=== PATIENT | male | born 1965 | race African-American/Black ===

== ENCOUNTER 2018-05-18 13:52 | Emergency (ER) | payer OTHER ==
[2018-05-18 14:47] LABS: ADD MAN DIFF? NO
[2018-05-18 14:49] LABS: BASO # 0.1 x10^3/uL (0.0-0.2); BASO % 1 % (0-3); EOS # 0.1 x10^3/uL (0.0-0.7); EOS % 2 % (0-3); HEMATOCRIT 39.7 % (39.0-53.0); HEMOGLOBIN 13.2 g/dL (13.0-17.5); LYMPH % 47 % (24-48); MEAN CORPUSCULAR HEMOGLOBIN 29 pg (25-35); MEAN CORPUSCULAR HGB CONC 33 g/dL (31-37); MEAN CORPUSCULAR VOLUME 86 fL (79-100); MONO # 0.7 x10^3/uL (0.0-1.1); MONO % 10 % (0-9); NEUT # 2.5 x10^3uL (1.8-7.7); NEUT % 40 % (31-73); PLATELET COUNT 181 x10^3/uL (140-400); RED BLOOD COUNT 4.64 x10^6/uL (4.30-5.70); RED CELL DISTRIBUTION WIDTH 15.3 % (11.5-14.5); WHITE BLOOD COUNT 6.4 x10^3/uL (4.0-11.0)
[2018-05-18] MEDS: IV NORMAL SALINE 1000ML BAG 1,000 ML IV ×2 (14:56→16:54)
[2018-05-18 14:57] LABS: ANION GAP 7 (6-14); BLOOD UREA NITROGEN 15 mg/dL (8-26); CALCIUM 8.9 mg/dL (8.5-10.1); CARBON DIOXIDE 27 mmol/L (21-32); CHLORIDE 109 mmol/L (98-107); CREATININE 1.9 mg/dL (0.7-1.3); GFR 45.1; GLUCOSE 107 mg/dL (70-99); POTASSIUM 3.9 mmol/L (3.5-5.1); SODIUM 143 mmol/L (136-145)
[2018-05-18 15:06] LABS: TROPONINI < 0.017 ng/mL (0.000-0.055)
[2018-05-18 16:44] LABS: BILIRUBIN,URINE NEGATIVE (NEG); CLARITY,URINE CLEAR; COLOR,URINE YELLOW; GLUCOSE,URINE NEGATIVE (NEG); NITRITE,URINE NEGATIVE (NEG); PROTEIN,URINE NEGATIVE (NEG-TRACE)
[2018-05-18 16:50] LABS: AMPHETAMINE/METHAMPHETAMINE NEG (NEG); BARBITURATES NEG (NEG); BENZODIAZEPINES NEG (NEG); CANNABINOIDS NEG (NEG); COCAINE POS (NEG); ETHANOL, URINE NEG (NEG); METHADONE NEG (NEG); OPIATES NEG (NEG); PHENCYCLIDINE NEG (NEG)
[2018-05-18 16:56] LABS: BACTERIA,URINE 0 /HPF (0-FEW); SQUAMOUS EPITHELIAL CELL,UR FEW /LPF; WBC,URINE OCC /HPF (0-4)
== END 2018-05-18 18:22 | disposition home or self-care (01) ==
LOC: ER 13:52
DX: R42 Dizziness and giddiness (principal); G89.29 Other chronic pain
CPT/HCPCS: 36415; 80048; 80307; 81001; 84484; 85025; 93005; 96360; 96361; 96365; 99285-25; J7030

== ENCOUNTER 2018-12-25 14:15 | Inpatient (IN) | payer MEDICARE, OTHER ==
[~2018-12-25] VITALS: Ht 180.3 cm; Wt 100.9 kg
[~2018-12-25 14:15] MED LIST: ACET5SOL PO; ALBU8.5H6 IH; AMOX500T PO
[2018-12-25] MEDS ORDERED: IV NORMAL SALINE 1000ML BAG 1,000 ML IV SCH (14:24)
[2018-12-25] MEDS ORDERED: IV NORMAL SALINE 1000ML BAG 1,000 ML IV ONE (14:30)
[2018-12-25 14:40] LABS: BASO # 0.1 x10^3/uL (0.0-0.2); BASO % 1 % (0-3); EOS # 0.1 x10^3/uL (0.0-0.7); EOS % 1 % (0-3); HEMATOCRIT 43.5 % (39.0-53.0); HEMOGLOBIN 14.6 g/dL (13.0-17.5); LYMPH # 1.6 x10^3/uL (1.0-4.8); LYMPH % 23 % (24-48); MEAN CORPUSCULAR HEMOGLOBIN 29 pg (25-35); MEAN CORPUSCULAR HGB CONC 34 g/dL (31-37); MEAN CORPUSCULAR VOLUME 85 fL (79-100); MONO # 0.8 x10^3/uL (0.0-1.1); MONO % 12 % (0-9); NEUT # 4.4 x10^3uL (1.8-7.7); NEUT % 64 % (31-73); PLATELET COUNT 194 x10^3/uL (140-400); RED BLOOD COUNT 5.11 x10^6/uL (4.30-5.70); WHITE BLOOD COUNT 6.9 x10^3/uL (4.0-11.0)
[2018-12-25 14:42] LABS: BASE EXCESS ABG 0 mmol/L (-3-3); HCO3 ABG 22 mmol/L (21-28); PCO2 ABG 29 mmHg (35-46); PO2 ABG 101 mmHg (75-108); SAT O2 ABG 97 % (92-99)
--- NOTE | 2018-12-25 14:43 | PHYS DOC ---
Past Medical History Past Medical History: Hypertension, Other Additional Past Medical Histor: CHRONIC BACK PAIN Past Surgical History: No Surgical History Smoking: Cigarettes Alcohol Use: Rarely Drug Use: Cocaine Adult General Chief Complaint Chief Complaint: SHORTNESS OF BREATH HPI HPI Patient is a 53-year-old -[place] male who presents to the emergency department for evaluation. He states he awakened this morning and was acutely short of breath, and then came to the ER and reportedly had a syncopal episode and collapsed in the waiting room. He was rushed back to an ER treatment area. He denies any pain, but is tachypnea/hyperventilating upon initial assessment. He has not had any chest pain, headache, numbness, or focal weakness. He does admit to recent cocaine use. There are no alleviating or exacerbating factors to his symptoms otherwise. Review of Systems Review of Systems Constitutional: Denies fever or chills [] Eyes: Denies change in visual acuity, redness, or eye pain [] HENT: Denies nasal congestion or sore throat [] Respiratory: Reports nonproductive cough and shortness of breath.] Cardiovascular: No additional information not addressed in HPI [] GI: Denies abdominal pain, nausea, vomiting, bloody stools or diarrhea [] : Denies dysuria or hematuria [] Musculoskeletal: Denies back pain or joint pain [] Integument: Denies rash or skin lesions [] Neurologic: Denies headache, focal weakness or sensory changes [] Endocrine: Denies polyuria or polydipsia [] All other systems were reviewed and found to be within normal limits, except as documented in this note. Current Medications Current Medications Current Medications Medications (Trade) Dose Ordered Sig/Tita Start Time Stop Time Status Last Admin Dose Admin Lorazepam (Ativan) 1 mg 1X ONCE 12/25/18 15:30 12/25/18 15:33 DC 12/25/18 15:40 1 MG Sodium Chloride 1,000 ml @ 1,000 mls/hr Q1H 12/25/18 14:24 12/25/18 15:23 DC 12/25/18 15:35 1,000 MLS/HR Allergies Allergies Allergies Coded Allergies Type Severity Reaction Last Updated Verified No Known Drug Allergies 01/13/14 No Physical Exam Physical Exam PHYSICAL EXAM: CONSTITUTIONAL: Well developed, well nourished HEAD: normocephalic, atraumatic EENT: PERRL, EOMI. Conjunctivae normal color, sclerae non-icteric; moist mucous membranes. NECK: Supple, non-tender; no meningismus. LUNGS: Lungs CTA, the patient is hyperventilating. HEART: Regular rate and rhythm, no murmur CHEST: No deformity; non-tender ABDOMEN: The abdomen is soft, and non-tender, no masses or bruits. EXTREM: Normal ROM; no deformity, no calf tenderness. Normal pulses palpable in all extremities. There is no pedal edema. SKIN: No rash; no diaphoresis NEURO: Patient is lethargic but awake, oriented, and answering questions normally, normal speech and cognition; CN's grossly intact; strength grossly intact without focal deficit. BACK: No CVA TTP. Current Patient Data Vital Signs Vital Signs Date Time Temp Pulse Resp B/P (MAP) Pulse Ox O2 Delivery O2 Flow Rate FiO2 12/25/18 14:15 100.4 103 38 171/97 (121) 100 Nasal Cannula 2.0 100.4 Lab Values Laboratory Tests Test 12/25/18 14:18 12/25/18 14:28 12/25/18 14:40 White Blood Count 6.9 x10^3/uL (4.0-11.0) Red Blood Count 5.11 x10^6/uL (4.30-5.70) Hemoglobin 14.6 g/dL (13.0-17.5) Hematocrit 43.5 % (39.0-53.0) Mean Corpuscular Volume 85 fL (79-100) Mean Corpuscular Hemoglobin 29 pg (25-35) Mean Corpuscular Hemoglobin Concent 34 g/dL (31-37) Red Cell Distribution Width 15.0 % (11.5-14.5) H Platelet Count 194 x10^3/uL (140-400) Neutrophils (%) (Auto) 64 % (31-73) Lymphocytes (%) (Auto) 23 % (24-48) L Monocytes (%) (Auto) 12 % (0-9) H Eosinophils (%) (Auto) 1 % (0-3) Basophils (%) (Auto) 1 % (0-3) Neutrophils # (Auto) 4.4 x10^3uL (1.8-7.7) Lymphocytes # (Auto) 1.6 x10^3/uL (1.0-4.8) Monocytes # (Auto) 0.8 x10^3/uL (0.0-1.1) Eosinophils # (Auto) 0.1 x10^3/uL (0.0-0.7) Basophils # (Auto) 0.1 x10^3/uL (0.0-0.2) Prothrombin Time 13.2 SEC (11.7-14.0) Prothrombin Time INR 1.0 (0.8-1.1) D-Dimer (Tess) < 0.27 ug/mlFEU Sodium Level 143 mmol/L (136-145) Potassium Level 3.9 mmol/L (3.5-5.1) Chloride Level 105 mmol/L (98-107) Carbon Dioxide Level 26 mmol/L (21-32) Anion Gap 12 (6-14) Blood Urea Nitrogen 14 mg/dL (8-26) Creatinine 1.5 mg/dL (0.7-1.3) H Estimated GFR (Cockcroft-Gault) 59.0 BUN/Creatinine Ratio 9 (6-20) Glucose Level 102 mg/dL (70-99) H Lactic Acid Level 2.2 mmol/L (0.4-2.0) H Calcium Level 9.2 mg/dL (8.5-10.1) Magnesium Level 2.2 mg/dL (1.8-2.4) Total Bilirubin 0.5 mg/dL (0.2-1.0) Aspartate Amino Transferase (AST) 20 U/L (15-37) Alanine Aminotransferase (ALT) 26 U/L (16-63) Alkaline Phosphatase 71 U/L (46-116) Creatine Kinase 255 U/L (39-308) Creatine Kinase MB (Mass) 2.1 ng/mL (0.0-3.6) Creatine Kinase MB Relative Index 0.8 % (0-4) Troponin I Quantitative < 0.017 ng/mL (0.000-0.055) RP-Mve-O-Type Natriuretic Peptide 55 pg/mL (0-124) Total Protein 8.1 g/dL (6.4-8.2) Albumin 3.7 g/dL (3.4-5.0) Albumin/Globulin Ratio 0.8 (1.0-1.7) L Lipase 94 U/L (73-393) Ethyl Alcohol Level < 10 mg/dL (0-10) Influenza Type A Antigen Negative (NEGATIVE) Influenza Type B Antigen Negative (NEGATIVE) O2 Saturation 97 % (92-99) Arterial Blood pH 7.49 (7.35-7.45) H Arterial Blood pCO2 at Patient Temp 29 mmHg (35-46) L Arterial Blood pO2 at Patient Temp 101 mmHg (75-108) Arterial Blood HCO3 22 mmol/L (21-28) Arterial Blood Base Excess 0 mmol/L (-3-3) FiO2 32 Laboratory Tests 12/25/18 14:18 Laboratory Tests 12/25/18 14:18 EKG EKG [Normal sinus rhythm at a rate of 91 bpm, normal axis, normal intervals. There is lateral T wave inversion without acute ischemic ST/T changes.] EKG is not changed compared to patient's prior EKG. Radiology/Procedures Radiology/Procedures [PROCEDURE: PORTABLE CHEST 1V EXAM: Chest, single view. HISTORY: Syncope. Shortness of breath. COMPARISON: None. FINDINGS: A frontal view of the chest is obtained. There is mild central interstitial prominence without los congestion or focal infiltrate. There is no consolidation. There is no pleural effusion or pneumothorax. The heart is normal in size. IMPRESSION: No acute pulmonary finding.] Course & Med Decision Making Course & Med Decision Making Pertinent Labs and Imaging studies reviewed. (See chart for details) [4:15 PM: The patient's condition remained stable. I discussed the case with Dr. Vazquez, his PCP, who will admit him to the hospital for further evaluation] Dragon Disclaimer Dragon Disclaimer This electronic medical record was generated, in whole or in part, using a voice recognition dictation system. Departure Departure Impression: Primary Impression: Dyspnea Additional Impressions: Syncope Altered mental status Cocaine abuse Disposition: ADMITTED INPATIENT Condition: STABLE Referrals: NO PCP (PCP) Problem Qualifiers SURI COTTO MD Dec 25, 2018 14:43
--- NOTE | 2018-12-25 14:49 | RAD ---
EXAM: Chest, single view. HISTORY: Syncope. Shortness of breath. COMPARISON: None. FINDINGS: A frontal view of the chest is obtained. There is mild central interstitial prominence without los congestion or focal infiltrate. There is no consolidation. There is no pleural effusion or pneumothorax. The heart is normal in size. IMPRESSION: No acute pulmonary finding. Electronically signed by: Charlee Freeman MD (12/25/2018 2:46 PM) [id number]
[2018-12-25 14:50] LABS: PROTHROMBIN TIME PATIENT 13.2 SEC (11.7-14.0)
[2018-12-25 14:54] LABS: D-DIMER < 0.27 ug/mlFEU (0.00-0.50)
[2018-12-25 14:56] LABS: CALCIUM 9.2 mg/dL (8.5-10.1); CREATININE 1.5 mg/dL (0.7-1.3); POTASSIUM 3.9 mmol/L (3.5-5.1)
[2018-12-25 15:05] LABS: INFLUENZA A PATIENT NEGATIVE (NEGATIVE); INFLUENZA B PATIENT NEGATIVE (NEGATIVE)
[2018-12-25 15:09] LABS: ALBUMIN 3.7 g/dL (3.4-5.0); ALBUMIN/GLOBULIN RATIO 0.8 (1.0-1.7); MAGNESIUM 2.2 mg/dL (1.8-2.4); TOTAL BILIRUBIN 0.5 mg/dL (0.2-1.0); TOTAL PROTEIN 8.1 g/dL (6.4-8.2)
--- NOTE | 2018-12-25 15:50 | EKG ---
[facility] [address] [place] [address] Test Date: 2018-12-25 Test Time: 14:24:52 Pat Name: KAROLINE MÉNDEZ Department: Room: Gender: M Regional Clinical Director: : 1965 Requested By: SURI COTTO Order Number: [id number] Reading MD: Chicho Rosado MD Measurements Intervals [place] Rate: 91 P: 50 NE: 158 QRS: 46 QRSD: 94 T: 101 QT: 330 QTc: 413 Interpretive Statements SINUS RHYTHM LVH Electronically Signed On 12-26-2018 16:10:57 CDT by Chicho Rosado MD
[2018-12-25 16:12] LABS: FIO2 ABG 32
[2018-12-25 16:22] LABS: BILIRUBIN,URINE NEGATIVE (NEG); CLARITY,URINE CLEAR; COLOR,URINE YELLOW; NITRITE,URINE NEGATIVE (NEG); PROTEIN,URINE NEGATIVE (NEG-TRACE)
[2018-12-25 16:45] LABS: BARBITURATES NEG (NEG); BENZODIAZEPINES NEG (NEG); CANNABINOIDS NEG (NEG); COCAINE POS (NEG); METHADONE NEG (NEG); OPIATES NEG (NEG); PHENCYCLIDINE NEG (NEG)
[2018-12-25 16:47] LABS: AMPHETAMINE/METHAMPHETAMINE NEG (NEG); BACTERIA,URINE 0 /HPF (0-FEW); RBC,URINE OCC /HPF (0-2); SQUAMOUS EPITHELIAL CELL,UR OCC /LPF; WBC,URINE 0 /HPF (0-4)
[2018-12-25 17:41] VITALS: BP 119/75
[2018-12-25] MEDS ORDERED: LITHIUM CARBONATE ER 300 MG TABLET.ER PO SCH (18:15)
[2018-12-25] MEDS: CYCLOBENZAPRINE 10 MG TABLET. PO PRN (18:44)
[2018-12-25] MEDS: chlordiazePOXIDE HCL 25 MG CAPSULE PO PRN (18:44)
[2018-12-25] MEDS: IBUPROFEN 200 MG TABLET. PO PRN (19:32)
[2018-12-25 19:58] VITALS: BP 150/93
[2018-12-25] MEDS: IPRATRPIUM/ALBUTEROL 0.5/2.5MG 3 ML NEBU. NEB SCH (20:07)
[2018-12-25 23:45] VITALS: BP 113/56
[2018-12-26] MEDS: CYCLOBENZAPRINE 10 MG TABLET. PO PRN (02:20)
[2018-12-26] MEDS: chlordiazePOXIDE HCL 25 MG CAPSULE PO PRN ×3 (02:20→21:13)
[2018-12-26 03:40] VITALS: BP 92/55
[2018-12-26] MEDS: IBUPROFEN 200 MG TABLET. PO PRN ×3 (03:52→19:51)
--- NOTE | 2018-12-26 03:55 | RAD ---
Indication:fever, increased heart rate, increased troponin TECHNIQUE:Portable AP chest X-ray COMPARISON: 12/25/2018 FINDINGS: Heart is normal in size. Bilateral interstitial opacities are seen. No focal consolidation. No pneumothorax or pleural effusion. Visualized bony thorax is within normal limits. IMPRESSION: Findings of atypical/viral infection or interstitial pulmonary edema. Electronically signed by: Nghia Escalante DO (12/26/2018 3:53 AM) [id number]
[2018-12-26] MEDS ORDERED: IV NORMAL SALINE 1000ML BAG 1,000 ML IV SCH ×2 (04:00→05:30)
--- NOTE | 2018-12-26 04:02 | NUR ---
Pt with elevated temp noted again during the noc. Pt also with nonproductive cough noted and elevated troponin. Notified vector control assistant Physician and received orders. Orders implemented and pt given motrin to help decrease temperature. Pt states complaints of chest pain due to his coughing. Pt also given flexeril and librium for his symptoms. IV fluids and antibiotics given after labs drawn. Will continue current plan of care.
[2018-12-26] MEDS: cefTRIAXone IV Push 1 GM VIAL. IVP SCH (04:12)
[2018-12-26 04:46] LABS: BASO # 0.1 x10^3/uL (0.0-0.2); BASO % 1 % (0-3); EOS % 0 % (0-3); HEMATOCRIT 37.8 % (39.0-53.0); HEMOGLOBIN 12.4 g/dL (13.0-17.5); LYMPH # 0.6 x10^3/uL (1.0-4.8); LYMPH % 12 % (24-48); MEAN CORPUSCULAR HEMOGLOBIN 28 pg (25-35); MEAN CORPUSCULAR HGB CONC 33 g/dL (31-37); MEAN CORPUSCULAR VOLUME 85 fL (79-100); MONO # 0.6 x10^3/uL (0.0-1.1); MONO % 12 % (0-9); NEUT # 3.9 x10^3uL (1.8-7.7); NEUT % 75 % (31-73); PLATELET COUNT 162 x10^3/uL (140-400); RED BLOOD COUNT 4.46 x10^6/uL (4.30-5.70); RED CELL DISTRIBUTION WIDTH 14.5 % (11.5-14.5); WHITE BLOOD COUNT 5.2 x10^3/uL (4.0-11.0)
[2018-12-26] MEDS ORDERED: FUROSEMIDE 20 MG/2 ML VIAL. IVP ONE (05:30)
[2018-12-26 06:50] VITALS: BP 113/65
[2018-12-26] MEDS: IPRATRPIUM/ALBUTEROL 0.5/2.5MG 3 ML NEBU. NEB SCH ×4 (08:02→21:07)
[2018-12-26] MEDS: LACTOBACILLUS RHAMNOSUS GG 1 CAPSULE. PO SCH ×2 (09:14→19:51)
--- NOTE | 2018-12-26 09:14 | NUR ---
SW following pt for anticipated dc needs. Chart reviewed and discussed with RN. Pt is from home and is positive for cocaine. KIRT phoned the PAT team for assessment and evaluation for substance use. Loulou from PAT team will come in to see pt in the afternoon. Will continue to follow.
[2018-12-26] MEDS ORDERED: AZITHROMYCIN 250 MG TABLET. PO ONE (09:15)
[2018-12-26] MEDS ORDERED: BENZONATATE 100 MG CAPSULE. PO SCH (09:30)
[2018-12-26] MEDS: BENZONATATE 100 MG CAPSULE. PO PRN (10:45)
[2018-12-26 11:01] VITALS: BP 116/63
--- NOTE | 2018-12-26 11:17 | HP ---
ADMIT DATE: 12/26/2018 CHIEF COMPLAINT: Shortness of breath. HISTORY OF PRESENT ILLNESS AND HOSPITAL COURSE: The patient is a 53-year-old male who comes in with increasing cough and shortness of breath. The patient had episode of syncope and collapsed in the ER waiting room. He was quickly revived and brought to the examination room, acting somewhat confused and having difficulty with history was discovered. The patient had been using cocaine 3 days prior and periodically uses alcohol, but has not had a drink for over 3 days. ER evaluation was mostly negative with negative troponins, white count and chest x-ray, but due to syncope and severity of symptoms, the patient was admitted for further evaluation. During early hospitalization, chest x-ray did show evidence of interstitial changes consistent with CHF versus viral syndrome. The patient also had a very mild elevation in troponin. Cardiology was consulted as well as Pulmonary. The patient was started on antibiotics and routine breathing treatments with cardiac echo pending. PAST MEDICAL HISTORY: Significant for diet-controlled hypertension, chronic back pains. PAST SURGICAL HISTORY: Significant for tonsil-adenoidectomy. FAMILY HISTORY: Significant for mother who is with cancer of unknown etiology. Father who is with cancer of unknown etiology. Also had COPD, hypertension and kidney disease as well as an ND. Brother is of cancer of unknown etiology. A daughter with asthma. SOCIAL HISTORY: The patient continues to smoke a pack and half or more a day. The patient drinks on a daily basis. The patient uses crack cocaine regularly. The patient is and is on disability for psychiatric reasons and mental incapacity. ALLERGIES: The patient has no known drug allergies. REVIEW OF SYSTEMS: The patient complains mostly of cough, but also complains of back pain. Denies any recent fevers, nausea, vomiting, constipation, or diarrhea, recent weight loss or weight gain. PHYSICAL EXAMINATION: GENERAL: This is a well-nourished, morbidly obese -[place] male, in no apparent distress, but with coughing fits during my exam. HEENT: Reveals poor dentition. CARDIAC: Regular rate and rhythm without murmur. LUNGS: Coarse without significant wheezing. ABDOMEN: Soft, nontender with positive bowel sounds. EXTREMITIES: 2+ pulses without significant edema. NEUROLOGIC: Showed no unilateral findings. ASSESSMENT: 1. Bronchitis. 2. Substance abuse. 3. Acute on chronic renal failure. 4. Elevated troponin. 5. Mild congestive heart failure, diastolic in nature. 6. Monitor for alcohol withdrawal. 7. Lactic acidosis. PLAN: To proceed with pulmonary toilet in the form of breathing treatments. Proceed with p.o. and IV antibiotics of Rocephin and Zithromax. Consult Pulmonary Medicine and Cardiology. Add cardiac echo and monitor the patient's symptoms. Plan for discharge once stable. KRISTY TOVAR MD DR: PALAK/lashonda JOB#: [id number] / [id number]
--- NOTE | 2018-12-26 11:21 | PDOC2 ---
[facility] DIRECT[facility] 12/26/18 1121: CARDIAC CONSULT DATE OF CONSULT Date of Consult DATE: 12/26/18 TIME: 10:59 REASON FOR CONSULT Reason for Consult: Pulmonary edema, increased trop REFERRING PHYSICIAN Referring Physician: Leeann SOURCE Source: Chart review, Patient HISTORY OF PRESENT ILLNESS HISTORY OF PRESENT ILLNESS This is a 53 yo male admitted for complains of shortness of breath. This started about 2 days ago he has been having chills and cough productive white sputum at times. Denies any palpitations, nausea or vomiting. He has some chest pain but mainly with coughing and deep breathing. Denies any cardiac hx. He does take med for HTN. He did passed out in ED unknown duration but at that time he was tachypneic and was coughing. He continues to smoke tobacco. No prior cardiac workup. PAST MEDICAL HISTORY Cardiovascular: HTN Pulmonary: No pertinent hx CENTRAL NERVOUS SYSTEM: Other (No pertintne history) GI: No pertinent hx Heme/Onc: No pertinent hx Hepatobiliary: No pertinent hx Psych: No pertinent hx Musculoskeletal: Osteoarthritis Rheumatologic: No pertinent hx Infectious disease: No pertinent hx ENT: No pertinent hx Renal/: No pertinent hx Endocrine: No pertinent hx Dermatology: No pertinent hx PAST SURGICAL HISTORY Past Surgical History: No pertinent history FAMILY HISTORY Family History: Heart Disease (sister with pacemaker) SOCIAL HISTORY Smoke: <1 pack per day (>7 yrs) ALCOHOL: occassional Drugs: Cocaine Lives: with Family CURRENT MEDICATIONS CURRENT MEDICATIONS Current Medications Medications (Trade) Dose Ordered Sig/Tita Route PRN Reason Start Time Stop Time Status Last Admin Dose Admin Sodium Chloride 1,000 ml @ 1,000 mls/hr 1X ONCE IV 12/25/18 14:30 12/25/18 15:29 DC 12/25/18 16:52 Sodium Chloride 1,000 ml @ 1,000 mls/hr Q1H IV 12/25/18 14:24 12/25/18 15:23 DC 12/25/18 15:35 Lorazepam (Ativan) 1 mg 1X ONCE IV 12/25/18 15:30 12/25/18 15:33 DC 12/25/18 15:40 Cyclobenzaprine HCl (Flexeril) 10 mg TID PRN PRN PO MUSCLE SPASMS 12/25/18 18:15 12/26/18 02:20 Ibuprofen (Motrin) 600 mg PRN Q6HRS PRN PO INFLAMMATION 12/25/18 18:15 12/26/18 10:56 Albuterol/ Ipratropium (Duoneb) 3 ml RTQID NEB 12/25/18 20:00 12/26/18 08:02 Chlordiazepoxide (Librium) 25 mg PRN Q4HRS PRN PO ALCOHOL WITHDRAWAL 12/25/18 18:45 12/26/18 02:20 Ceftriaxone Sodium (Rocephin) 1 gm Q24H IVP 12/26/18 04:00 12/26/18 04:12 Sodium Chloride 1,000 ml @ 1,000 mls/hr Q1H IV 12/26/18 04:00 12/26/18 04:20 DC 12/26/18 03:53 Lactobacillus Rhamnosus (Culturelle) 1 cap BID PO 12/26/18 09:00 12/26/18 09:14 Furosemide (Lasix) 20 mg 1X ONCE IVP 12/26/18 05:30 12/26/18 05:32 DC 12/26/18 05:12 Sodium Chloride 1,000 ml @ 100 mls/hr Q10H IV 12/26/18 05:30 12/26/18 09:20 DC 12/26/18 05:12 Azithromycin (Zithromax) 500 mg 1X ONCE PO 12/26/18 09:15 12/26/18 09:16 DC 12/26/18 09:14 Benzonatate (Tessalon Perle) 100 mg PRN Q6HRS PRN PO COUGH 12/26/18 10:45 12/26/18 10:45 ALLERGIES ALLERGIES: Coded Allergies: No Known Drug Allergies (Unverified , 01/13/14) ROS Review of System 14 point ROS evaluated with pertinent positives noted per HPI PHYSICAL EXAM General: Alert, Oriented X3, Cooperative, No acute distress HEENT: Atraumatic, Mucous membr. moist/pink Lungs: Clear to auscultation, Normal air movement Heart: Regular rate (SR), Normal S1, Normal S2, Other (3/6 systolic murmur to LLS border) Abdomen: Soft, No tenderness Extremities: No cyanosis, No edema Skin: No breakdown, No significant lesion Neuro: Normal speech, Sensation intact Psych/Mental Status: Mental status NL, Mood NL MUSCULOSKELETAL: Osteoarthritic changes both hands VITALS VITALS Vital Signs Date Time Temp Pulse Resp B/P (MAP) Pulse Ox O2 Delivery O2 Flow Rate FiO2 12/26/18 08:02 97 Nasal Cannula 2.0 12/26/18 06:50 98.3 82 18 113/65 (81) 98.3 LABS Lab: Laboratory Tests Test 12/25/18 14:18 12/25/18 14:28 12/25/18 14:40 12/25/18 16:00 White Blood Count 6.9 x10^3/uL (4.0-11.0) Red Blood Count 5.11 x10^6/uL (4.30-5.70) Hemoglobin 14.6 g/dL (13.0-17.5) Hematocrit 43.5 % (39.0-53.0) Mean Corpuscular Volume 85 fL (79-100) Mean Corpuscular Hemoglobin 29 pg (25-35) Mean Corpuscular Hemoglobin Concent 34 g/dL (31-37) Red Cell Distribution Width 15.0 % (11.5-14.5) Platelet Count 194 x10^3/uL (140-400) Neutrophils (%) (Auto) 64 % (31-73) Lymphocytes (%) (Auto) 23 % (24-48) Monocytes (%) (Auto) 12 % (0-9) Eosinophils (%) (Auto) 1 % (0-3) Basophils (%) (Auto) 1 % (0-3) Neutrophils # (Auto) 4.4 x10^3uL (1.8-7.7) Lymphocytes # (Auto) 1.6 x10^3/uL (1.0-4.8) Monocytes # (Auto) 0.8 x10^3/uL (0.0-1.1) Eosinophils # (Auto) 0.1 x10^3/uL (0.0-0.7) Basophils # (Auto) 0.1 x10^3/uL (0.0-0.2) Prothrombin Time 13.2 SEC (11.7-14.0) Prothromb Time International Ratio 1.0 (0.8-1.1) D-Dimer (Tess) < 0.27 ug/mlFEU Sodium Level 143 mmol/L (136-145) Potassium Level 3.9 mmol/L (3.5-5.1) Chloride Level 105 mmol/L (98-107) Carbon Dioxide Level 26 mmol/L (21-32) Anion Gap 12 (6-14) Blood Urea Nitrogen 14 mg/dL (8-26) Creatinine 1.5 mg/dL (0.7-1.3) Estimated GFR (Cockcroft-Gault) 59.0 BUN/Creatinine Ratio 9 (6-20) Glucose Level 102 mg/dL (70-99) Glucose (Fingerstick) 107 mg/dL (70-99) Lactic Acid Level 2.2 mmol/L (0.4-2.0) Calcium Level 9.2 mg/dL (8.5-10.1) Magnesium Level 2.2 mg/dL (1.8-2.4) Total Bilirubin 0.5 mg/dL (0.2-1.0) Aspartate Amino Transf (AST/SGOT) 20 U/L (15-37) Alanine Aminotransferase (ALT/SGPT) 26 U/L (16-63) Alkaline Phosphatase 71 U/L (46-116) Creatine Kinase 255 U/L (39-308) Creatine Kinase MB (Mass) 2.1 ng/mL (0.0-3.6) Creatine Kinase MB Relative Index 0.8 % (0-4) Troponin I Quantitative < 0.017 ng/mL (0.000-0.055) GC-Kza-K-Type Natriuretic Peptide 55 pg/mL (0-124) Total Protein 8.1 g/dL (6.4-8.2) Albumin 3.7 g/dL (3.4-5.0) Albumin/Globulin Ratio 0.8 (1.0-1.7) Lipase 94 U/L (73-393) Ethyl Alcohol Level < 10 mg/dL (0-10) Influenza Type A Antigen Negative (NEGATIVE) Influenza Type B Antigen Negative (NEGATIVE) O2 Saturation 97 % (92-99) Arterial Blood pH 7.49 (7.35-7.45) Arterial Blood pCO2 at Patient Temp 29 mmHg (35-46) Arterial Blood pO2 at Patient Temp 101 mmHg (75-108) Arterial Blood HCO3 22 mmol/L (21-28) Arterial Blood Base Excess 0 mmol/L (-3-3) FiO2 32 Urine Collection Type Clean catch Urine Color Yellow Urine Clarity Clear Urine pH 8.0 Urine Specific [place] 1.020 Urine Protein Negative mg/dL (NEG-TRACE) Urine Glucose (UA) Negative mg/dL (NEG) Urine Ketones (Stick) Negative mg/dL (NEG) Urine Blood Negative (NEG) Urine Nitrite Negative (NEG) Urine Bilirubin Negative (NEG) Urine Urobilinogen Dipstick 1.0 mg/dL (0.2 mg/dL) Urine Leukocyte Esterase Negative (NEG) Urine RBC Occ /HPF (0-2) Urine WBC 0 /HPF (0-4) Urine Squamous Epithelial Cells Occ /LPF Urine Bacteria 0 /HPF (0-FEW) Urine Mucus Slight /LPF Urine Opiates Screen Neg (NEG) Urine Methadone Screen Neg (NEG) Urine Barbiturates Neg (NEG) Urine Phencyclidine Screen Neg (NEG) Urine Amphetamine/Methamphetamine Neg (NEG) Urine Benzodiazepines Screen Neg (NEG) Urine Cocaine Screen Pos (NEG) Urine Cannabinoids Screen Neg (NEG) Urine Ethyl Alcohol Neg (NEG) Test 12/25/18 20:00 12/25/18 23:00 12/26/18 04:00 Troponin I Quantitative 0.022 ng/mL (0.000-0.055) 0.026 ng/mL (0.000-0.055) White Blood Count 5.2 x10^3/uL (4.0-11.0) Red Blood Count 4.46 x10^6/uL (4.30-5.70) Hemoglobin 12.4 g/dL (13.0-17.5) Hematocrit 37.8 % (39.0-53.0) Mean Corpuscular Volume 85 fL (79-100) Mean Corpuscular Hemoglobin 28 pg (25-35) Mean Corpuscular Hemoglobin Concent 33 g/dL (31-37) Red Cell Distribution Width 14.5 % (11.5-14.5) Platelet Count 162 x10^3/uL (140-400) Neutrophils (%) (Auto) 75 % (31-73) Lymphocytes (%) (Auto) 12 % (24-48) Monocytes (%) (Auto) 12 % (0-9) Eosinophils (%) (Auto) 0 % (0-3) Basophils (%) (Auto) 1 % (0-3) Neutrophils # (Auto) 3.9 x10^3uL (1.8-7.7) Lymphocytes # (Auto) 0.6 x10^3/uL (1.0-4.8) Monocytes # (Auto) 0.6 x10^3/uL (0.0-1.1) Eosinophils # (Auto) 0.0 x10^3/uL (0.0-0.7) Basophils # (Auto) 0.1 x10^3/uL (0.0-0.2) ASSESSMENT/PLAN ASSESSMENT/PLAN 1. Syncope: suspect vasovagal, no arrhythmias. No trop elevation. EKG SR with LVH/NAVEED, no acute changes. 2. Acute bronchitis/fever: clinically no CHF with Pro NT BNP of 55. 3. Substance abuse: UDS+ for cocaine 4. Tobaccoism 5. HTN: controlled 6. Atypical CP: pleuritic 7. Reactive sinus tach: allow cocaine washout. Recommendations 1. baseline TTE 2. Smoking and cocaine cessation 3. Continue Home BP regimen. ROBERT HITCHCOCK MD 12/26/18 1612: CARDIAC CONSULT ASSESSMENT/PLAN ASSESSMENT/PLAN Pt. seen and examined. Agree with above COUNTER MANAGER note. Non-cardiac syncope thus far. No obvious arrhythmias, EKG with LVH versus ischemic changes from cocaine. Normal exam. Trop ok supportive care. Will follow along peripherally. JORDYN GOMEZ APRN Dec 26, 2018 11:21 ROBERT HITCHCOCK MD Dec 26, 2018 16:12
--- NOTE | 2018-12-26 11:34 | CONS ---
DATE OF CONSULTATION: ATTENDING PHYSICIAN: Dr. Bradshaw. REASON FOR CONSULTATION: Syncope and dyspnea. HISTORY OF PRESENT ILLNESS: The patient is a 53-year-old male who has history of tobacco use for 7 years and also cocaine use for the last 6 years. He presented to the Emergency Room with complaint of shortness of breath. Apparently, the patient had a syncopal episode and collapsed in the waiting room. He said he did not have any recollection of the events. He said he was having some chest pain as well. The patient was initially hyperventilating. He states he has a cough which has been nonproductive. No fever, no chills. No headaches. No nausea, vomiting or diarrhea. Chest x-ray was reviewed. This was done on the and . He has mildly prominent interstitial markings. His influenza screen was negative. His urine toxicology screen was positive for cocaine. I have been asked to see him for further evaluation. PAST MEDICAL HISTORY: Hypertension, history of substance abuse. PAST SURGICAL HISTORY: No recent surgeries. ALLERGIES: None. CURRENT MEDICATIONS: Reviewed, as listed in the MRAD, including antibiotic, and DuoNebs. SOCIAL HISTORY: Smoker for 7 years, less than 1 pack per day and does cocaine once a week for the last 6 years. REVIEW OF SYSTEMS: Twelve-point system obtained. Pertinent positives discussed in my history of present illness, otherwise noncontributory. All systems that were negative were reviewed as well. PHYSICAL EXAMINATION: VITAL SIGNS: His T-max is 102.7, blood pressure stable, pulse ox 95% on 2 liters. NECK: Supple. LUNGS: With diminished breath sounds, no wheezing. CARDIOVASCULAR: Regular rate. ABDOMEN: Soft, nontender. EXTREMITIES: With no pitting edema. LABORATORY DATA: Reviewed. D-dimer is less than 0.27. ABGs with a pH of 7.49, pCO2 of 29, a pO2 of 101. FiO2 of 32%. IMPRESSION: 1. Acute hypoxic respiratory failure, likely related to viral pneumonitis. His chest x-ray shows mild interstitial pattern, suggesting likely a viral infection. He also had a fever of 102.9 on admission. 2. Syncopal episode, likely related to cocaine abuse. D-dimer is normal and as such does not need any workup for thromboembolic disease. 3. Substance abuse with cocaine. 4. Normal troponin level. 5. Mild renal insufficiency with acute kidney injury. RECOMMENDATIONS: 1. The patient was given substance abuse counseling. 2. Monitor fever pattern. Influenza screen is negative. 3. Follow all cultures. 4. Continue empiric antibiotics. 5. Obtain echocardiogram. 6. No need for any thromboembolic workup. 7. Continue bronchodilators. 8. Discussed with Cardiology and discussed with RN. FAITH ASCENCIO MD DR: MELVA/lashonda JOB#: [id number] / [id number]
--- NOTE | 2018-12-26 13:59 | NUR ---
SW following pt. Saray from PAT team met with pt and provided him with outpatient treatment resources. Pt reported to Saray that 'he is not able to read and believes he has had 'brain injury'. Saray has provided pt with TBI waiver information as well.
[2018-12-26 15:00] VITALS: BP 97/54
--- NOTE | 2018-12-26 17:34 | CARD ---
MR#: [id number] Date of Study: 12/26/2018 Ordering Physician: JORDYN GOMEZ, Referring Physician: KRISTY TOVAR Tech: Keyla Izquierdo [facility] APPROVED REPORT EXAM: Two-dimensional and M-mode echocardiogram with Doppler and color Doppler. Other Information Quality : Technically LimitedHR: 85bpm Rhythm : NSRTechnically limited study due to body habitus and smoking. INDICATION Chest Pain 2D DIMENSIONS RVDd2.9 (2.9-3.5cm)Left Atrium(2D)2.7 (1.6-4.0cm) IVSd1.5 (0.7-1.1cm)Aortic Root(2D)3.7 (2.0-3.7cm) LVDd4.9 (3.9-5.9cm)LVOT Diameter2.1 (1.8-2.4cm) PWd1.2 (0.7-1.1cm)LVDs2.7 (2.5-4.0cm) FS (%) 45.6 %SV88.5 ml LVEF(%)76.8 (>50%) M-Mode DIMENSIONS Left Atrium(MM)2.75 (2.5-4.0cm)Aortic Root3.73 (2.2-3.7cm) Aortic Valve AoV Peak Liam.247.4cm/sAoV VTI36.3cm AO Peak GR.24.5mmHgLVOT VTI 29.35cm AO Mean GR.12mmHgAVA (VMAX)2.80cm2 BELA (VTI)2.20gn2JA P 1/2 [id number] Mitral Valve MV E Nequpznm64.6cm/sMV E Peak Gr.4mmHg MV DECEL [id number] A Lbnqwyav32.9cm/s MV E Mean Gr.2mmHgE/A Ratio1.1 MV A [id number] LEFT VENTRICLE The left ventricle is normal size. There is mild concentric left ventricular hypertrophy. The left ve ntricle is hyperdynamic. The Ejection Fraction is >70%. There is normal LV segmental wall motion. Tra nsmitral Doppler flow pattern is normal for age. RIGHT VENTRICLE The right ventricle is normal size. There is normal right ventricular wall thickness. The right ventr icular systolic function is normal. ATRIA The left atrium size is normal. The right atrium size is normal. The interatrial septum is intact wit h no evidence for an atrial septal defect or patent foramen ovale as noted on 2-D or Doppler imaging. AORTIC VALVE The aortic valve is not well visualized. Doppler and Color Flow revealed mild aortic regurgitation. T here is no significant aortic valvular stenosis. MITRAL VALVE The mitral valve is thickened but opens well. There is no evidence of mitral valve prolapse. There is no mitral valve stenosis. Doppler and Color Flow revealed no mitral valve regurgitation noted. TRICUSPID VALVE The tricuspid valve is normal in structure and function. Doppler and Color Flow revealed no tricuspid valve regurgitation noted. There is no tricuspid valve prolapse or vegetation. There is no tricuspid valve stenosis. PULMONIC VALVE The pulmonic valve is not well visualized. GREAT VESSELS The aortic root is mildly enlarged. The ascending aorta is normal in size. The IVC is normal in size and collapses >50% with inspiration. PERICARDIAL EFFUSION There is no evidence of significant pericardial effusion. Critical Notification Critical Value: No <Conclusion> The left ventricle is hyperdynamic. The Ejection Fraction is >70%. There is normal LV segmental wall motion. Doppler and Color Flow revealed mild aortic regurgitation. Signed by : Chicho Rosado, Electronically Approved : 12/26/2018 17:33:56
[2018-12-26 19:52] VITALS: BP 121/48
[2018-12-26] MEDS: ACETAMINOPHEN 500 MG TABLET PO PRN (21:13)
[2018-12-26] MEDS: guaiFENesin DM 200MG/20MG 10 ML SYRUP PO PRN (21:14)
[2018-12-26] MEDS ORDERED: IV NORMAL SALINE 500ML BAG 500 ML IV ONE (21:30)
[2018-12-26] MEDS: IV NORMAL SALINE 1000ML BAG 1,000 ML IV SCH (22:37)
[2018-12-26 23:32] VITALS: BP 105/54
[2018-12-27 03:21] VITALS: BP 100/62
[2018-12-27] MEDS: cefTRIAXone IV Push 1 GM VIAL. IVP SCH (04:09)
[2018-12-27 07:00] VITALS: BP 124/72
[2018-12-27] MEDS: IPRATRPIUM/ALBUTEROL 0.5/2.5MG 3 ML NEBU. NEB SCH ×4 (07:30→19:58)
--- NOTE | 2018-12-27 09:06 | PDOC ---
PROGRESS NOTES Subjective Subjective Patient feeling much better and asking to go home. Patient with fever up to102 last night with pulse 100 - improved with fluids, Tylenol, ibuprofen, and Librium. Objective Objective Vital Signs Date Time Temp Pulse Resp B/P (MAP) Pulse Ox O2 Delivery O2 Flow Rate FiO2 12/27/18 07:32 94 Room Air 12/27/18 07:00 98.0 78 20 124/72 (89) 98.0 12/27/18 03:21 2.0 Intake and Output 12/27/18 07:00 Intake Total 1610 ml Output Total 2450 ml Balance -840 ml Intake Oral 1610 ml Output Urine Total 2450 ml # Voids 3 Physical Exam Abdomen: Normal bowel sounds Heart: Regular rate Extremities: No edema General: Alert Lungs: Clear to auscultation Assessment Assessment Problems Medical Problems: (1) Altered mental status Status: Acute (2) Cocaine abuse Status: Acute (3) Dyspnea Status: Acute (4) Syncope Status: Acute Syncope vasovagal Fever viral syndrome vs withdrawal Bronchitis suspect viral Substance abuse with withdrawal Acute on chronic renal failure. Elevated troponin. Lactic acidosis-resolved Plan Plan of Care Check BMP Home when afeb > 24 Hrs Wean to PO meds Comment Review of Relevant I have reviewed the following items bebeto (where applicable) has been applied. Labs Laboratory Tests Test 12/25/18 14:18 12/25/18 14:28 12/25/18 14:40 12/25/18 16:00 White Blood Count 6.9 x10^3/uL (4.0-11.0) Red Blood Count 5.11 x10^6/uL (4.30-5.70) Hemoglobin 14.6 g/dL (13.0-17.5) Hematocrit 43.5 % (39.0-53.0) Mean Corpuscular Volume 85 fL (79-100) Mean Corpuscular Hemoglobin 29 pg (25-35) Mean Corpuscular Hemoglobin Concent 34 g/dL (31-37) Red Cell Distribution Width 15.0 % (11.5-14.5) Platelet Count 194 x10^3/uL (140-400) Neutrophils (%) (Auto) 64 % (31-73) Lymphocytes (%) (Auto) 23 % (24-48) Monocytes (%) (Auto) 12 % (0-9) Eosinophils (%) (Auto) 1 % (0-3) Basophils (%) (Auto) 1 % (0-3) Neutrophils # (Auto) 4.4 x10^3uL (1.8-7.7) Lymphocytes # (Auto) 1.6 x10^3/uL (1.0-4.8) Monocytes # (Auto) 0.8 x10^3/uL (0.0-1.1) Eosinophils # (Auto) 0.1 x10^3/uL (0.0-0.7) Basophils # (Auto) 0.1 x10^3/uL (0.0-0.2) Prothrombin Time 13.2 SEC (11.7-14.0) Prothromb Time International Ratio 1.0 (0.8-1.1) D-Dimer (Tess) < 0.27 ug/mlFEU Sodium Level 143 mmol/L (136-145) Potassium Level 3.9 mmol/L (3.5-5.1) Chloride Level 105 mmol/L (98-107) Carbon Dioxide Level 26 mmol/L (21-32) Anion Gap 12 (6-14) Blood Urea Nitrogen 14 mg/dL (8-26) Creatinine 1.5 mg/dL (0.7-1.3) Estimated GFR (Cockcroft-Gault) 59.0 BUN/Creatinine Ratio 9 (6-20) Glucose Level 102 mg/dL (70-99) Glucose (Fingerstick) 107 mg/dL (70-99) Lactic Acid Level 2.2 mmol/L (0.4-2.0) Calcium Level 9.2 mg/dL (8.5-10.1) Magnesium Level 2.2 mg/dL (1.8-2.4) Total Bilirubin 0.5 mg/dL (0.2-1.0) Aspartate Amino Transf (AST/SGOT) 20 U/L (15-37) Alanine Aminotransferase (ALT/SGPT) 26 U/L (16-63) Alkaline Phosphatase 71 U/L (46-116) Creatine Kinase 255 U/L (39-308) Creatine Kinase MB (Mass) 2.1 ng/mL (0.0-3.6) Creatine Kinase MB Relative Index 0.8 % (0-4) Troponin I Quantitative < 0.017 ng/mL (0.000-0.055) ML-Iun-I-Type Natriuretic Peptide 55 pg/mL (0-124) Total Protein 8.1 g/dL (6.4-8.2) Albumin 3.7 g/dL (3.4-5.0) Albumin/Globulin Ratio 0.8 (1.0-1.7) Lipase 94 U/L (73-393) Ethyl Alcohol Level < 10 mg/dL (0-10) Influenza Type A Antigen Negative (NEGATIVE) Influenza Type B Antigen Negative (NEGATIVE) O2 Saturation 97 % (92-99) Arterial Blood pH 7.49 (7.35-7.45) Arterial Blood pCO2 at Patient Temp 29 mmHg (35-46) Arterial Blood pO2 at Patient Temp 101 mmHg (75-108) Arterial Blood HCO3 22 mmol/L (21-28) Arterial Blood Base Excess 0 mmol/L (-3-3) FiO2 32 Urine Collection Type Clean catch Urine Color Yellow Urine Clarity Clear Urine pH 8.0 Urine Specific [place] 1.020 Urine Protein Negative mg/dL (NEG-TRACE) Urine Glucose (UA) Negative mg/dL (NEG) Urine Ketones (Stick) Negative mg/dL (NEG) Urine Blood Negative (NEG) Urine Nitrite Negative (NEG) Urine Bilirubin Negative (NEG) Urine Urobilinogen Dipstick 1.0 mg/dL (0.2 mg/dL) Urine Leukocyte Esterase Negative (NEG) Urine RBC Occ /HPF (0-2) Urine WBC 0 /HPF (0-4) Urine Squamous Epithelial Cells Occ /LPF Urine Bacteria 0 /HPF (0-FEW) Urine Mucus Slight /LPF Urine Opiates Screen Neg (NEG) Urine Methadone Screen Neg (NEG) Urine Barbiturates Neg (NEG) Urine Phencyclidine Screen Neg (NEG) Urine Amphetamine/Methamphetamine Neg (NEG) Urine Benzodiazepines Screen Neg (NEG) Urine Cocaine Screen Pos (NEG) Urine Cannabinoids Screen Neg (NEG) Urine Ethyl Alcohol Neg (NEG) Test 12/25/18 20:00 12/25/18 23:00 12/26/18 04:00 Troponin I Quantitative 0.022 ng/mL (0.000-0.055) 0.026 ng/mL (0.000-0.055) White Blood Count 5.2 x10^3/uL (4.0-11.0) Red Blood Count 4.46 x10^6/uL (4.30-5.70) Hemoglobin 12.4 g/dL (13.0-17.5) Hematocrit 37.8 % (39.0-53.0) Mean Corpuscular Volume 85 fL (79-100) Mean Corpuscular Hemoglobin 28 pg (25-35) Mean Corpuscular Hemoglobin Concent 33 g/dL (31-37) Red Cell Distribution Width 14.5 % (11.5-14.5) Platelet Count 162 x10^3/uL (140-400) Neutrophils (%) (Auto) 75 % (31-73) Lymphocytes (%) (Auto) 12 % (24-48) Monocytes (%) (Auto) 12 % (0-9) Eosinophils (%) (Auto) 0 % (0-3) Basophils (%) (Auto) 1 % (0-3) Neutrophils # (Auto) 3.9 x10^3uL (1.8-7.7) Lymphocytes # (Auto) 0.6 x10^3/uL (1.0-4.8) Monocytes # (Auto) 0.6 x10^3/uL (0.0-1.1) Eosinophils # (Auto) 0.0 x10^3/uL (0.0-0.7) Basophils # (Auto) 0.1 x10^3/uL (0.0-0.2) Microbiology 12/26/18 Blood Culture - Preliminary, Resulted NO GROWTH AFTER 1 DAY Medications Current Medications Sodium Chloride 1,000 ml @ 1,000 mls/hr 1X ONCE IV Last administered on at 16:52; Start 12/25/18 at 14:30; Stop 12/25/18 at 15:29; Status DC Sodium Chloride 1,000 ml @ 1,000 mls/hr Q1H IV Last administered on 12/25/18at 15:35; Start 12/25/18 at 14:24; Stop 12/25/18 at 15:23; Status DC Lorazepam (Ativan) 1 mg 1X ONCE IV Last administered on 12/25/18at 15:40; Start 12/25/18 at 15:30; Stop 12/25/18 at 15:33; Status DC Influenza Virus Vaccine (Afluria Trivalent [id number] Syringe) 0.5 ml ONCE ONCE VAX IM Last administered on 12/26/18 15:00; Start 12/26/18 at 15:00; Stop at 15:01; Status DC [place] Carbonate (Lithobid) 25 mg PRN Q4HRS PO ; Start 12/25/18 at 18:15; Status UNV Cyclobenzaprine HCl (Flexeril) 10 mg TID PRN PRN PO MUSCLE SPASMS Last administered on 12/26/18 02:20; Start 12/25/18 at 18:15 Ibuprofen (Motrin) 600 mg PRN Q6HRS PRN PO INFLAMMATION Last administered on 19:51; Start 12/25/18 at 18:15 Albuterol/ Ipratropium (Duoneb) 3 ml RTQID NEB Last administered on 12/27/18 07:30; Start 12/25/18 at 20:00 Chlordiazepoxide (Librium) 25 mg PRN Q4HRS PRN PO ALCOHOL WITHDRAWAL Last administered on 12/26/18 21:13; Start 12/25/18 at 18:45 Ceftriaxone Sodium (Rocephin) 1 gm Q24H IVP Last administered on 12/27/18 04: 09; Start 12/26/18 at 04:00 Sodium Chloride 1,000 ml @ 1,000 mls/hr Q1H IV Last administered on 12/26/18 03:53; Start 12/26/18 at 04:00; Stop 12/26/18 at 04:20; Status DC Lactobacillus Rhamnosus (Culturelle) 1 cap BID PO Last administered on 19:51; Start 12/26/18 at 09:00 Furosemide (Lasix) 20 mg 1X ONCE IVP Last administered on 12/26/18 05:12; Start 12/26/18 at 05:30; Stop 12/26/18 at 05:32; Status DC Sodium Chloride 1,000 ml @ 100 mls/hr Q10H IV Last administered on 12/26/18 05:12; Start 12/26/18 at 05:30; Stop 12/26/18 at 09:20; Status DC Azithromycin (Zithromax) 500 mg 1X ONCE PO Last administered on 12/26/18 09: 14; Start 12/26/18 at 09:15; Stop 12/26/18 at 09:16; Status DC Benzonatate (Tessalon Perle) 100 mg PRN Q6HRS PO ; Start 12/26/18 at 09:30; Stop 12/26/18 at 10:43; Status DC Benzonatate (Tessalon Perle) 100 mg PRN Q6HRS PRN PO COUGH 2ND CHOICE Last administered on 12/26/18at 10:45; Start 12/26/18 at 10:45 Acetaminophen (Tylenol) 1,000 mg PRN Q6HRS PRN PO fever Last administered on at 21:13; Start 12/26/18 at 21:00 Guaifenesin (Robitussin Dm) 10 ml PRN Q6HRS PRN PO COUGH 1ST CHOICE Last administered on 12/26/18at 21:14; Start 12/26/18 at 21:00 Sodium Chloride 500 ml @ 500 mls/hr 1X ONCE IV Last administered on at 21:16; Start 12/26/18 at 21:30; Stop 12/26/18 at 22:29; Status DC Sodium Chloride 1,000 ml @ 100 mls/hr Q10H IV Last administered on 12/26/18at 22:37; Start 12/26/18 at 22:00 Active Scripts Active Vitals/I & O Vital Sign - Last 24 Hours 12/26/18 12/26/18 12/26/18 12/26/18 11:01 12:07 15:00 17:09 Temp 102.7 99.1 102.7 99.1 Pulse 112 82 Resp 20 18 B/P (MAP) 116/63 (80) 97/54 (68) Pulse Ox 95 100 96 O2 Delivery Nasal Cannula Nasal Cannula Nasal Cannula Room Air O2 Flow Rate 2.0 2.0 2.0 12/26/18 12/26/18 12/26/18 12/26/18 19:52 20:00 21:08 23:32 Temp 102.7 100.5 102.7 100.5 Pulse 109 94 Resp 18 18 B/P (MAP) 121/48 (72) 105/54 (71) Pulse Ox 97 98 96 O2 Delivery Nasal Cannula Nasal Cannula Room Air Nasal Cannula O2 Flow Rate 2.0 2.0 2.0 12/27/18 12/27/1812/27/19 03:21 07:00 07:32 Temp 98.1 98.0 98.1 98.0 Pulse 71 78 Resp 20 20 B/P (MAP) 100/62 (75) 124/72 (89) Pulse Ox 98 99 94 O2 Delivery Nasal Cannula Room Air O2 Flow Rate 2.0 Intake and Output 12/26/18 12/26/18 12/27/18 15:00 23:00 07:00 Intake Total 200 ml 300 ml 1110 ml Output Total 1200 ml 1250 ml Balance -1000 ml 300 ml -140 ml KRISTY TOVAR MD Dec 27, 2018 09:05
--- NOTE | 2018-12-27 09:17 | PDOC ---
PULMONARY PROGRESS NOTES Subjective has sob, cough is better Vitals Vital Signs Date Time Temp Pulse Resp B/P (MAP) Pulse Ox O2 Delivery O2 Flow Rate FiO2 12/27/18 07:32 94 Room Air 12/27/18 07:00 98.0 78 20 124/72 (89) 98.0 12/27/18 03:21 2.0 ROS: No Nausea General: Alert HEENT: Other (nc at perrl) Lungs: Crackles Cardiovascular: S1, S2 Abdomen: Soft, Non-tender Neuro Exam: Alert Extremities: No Edema Skin: Warm Labs Laboratory Tests Test 12/25/18 14:18 12/25/18 14:28 12/25/18 14:40 12/25/18 16:00 White Blood Count 6.9 x10^3/uL (4.0-11.0) Red Blood Count 5.11 x10^6/uL (4.30-5.70) Hemoglobin 14.6 g/dL (13.0-17.5) Hematocrit 43.5 % (39.0-53.0) Mean Corpuscular Volume 85 fL (79-100) Mean Corpuscular Hemoglobin 29 pg (25-35) Mean Corpuscular Hemoglobin Concent 34 g/dL (31-37) Red Cell Distribution Width 15.0 % (11.5-14.5) Platelet Count 194 x10^3/uL (140-400) Neutrophils (%) (Auto) 64 % (31-73) Lymphocytes (%) (Auto) 23 % (24-48) Monocytes (%) (Auto) 12 % (0-9) Eosinophils (%) (Auto) 1 % (0-3) Basophils (%) (Auto) 1 % (0-3) Neutrophils # (Auto) 4.4 x10^3uL (1.8-7.7) Lymphocytes # (Auto) 1.6 x10^3/uL (1.0-4.8) Monocytes # (Auto) 0.8 x10^3/uL (0.0-1.1) Eosinophils # (Auto) 0.1 x10^3/uL (0.0-0.7) Basophils # (Auto) 0.1 x10^3/uL (0.0-0.2) Prothrombin Time 13.2 SEC (11.7-14.0) Prothromb Time International Ratio 1.0 (0.8-1.1) D-Dimer (Tess) < 0.27 ug/mlFEU Sodium Level 143 mmol/L (136-145) Potassium Level 3.9 mmol/L (3.5-5.1) Chloride Level 105 mmol/L (98-107) Carbon Dioxide Level 26 mmol/L (21-32) Anion Gap 12 (6-14) Blood Urea Nitrogen 14 mg/dL (8-26) Creatinine 1.5 mg/dL (0.7-1.3) Estimated GFR (Cockcroft-Gault) 59.0 BUN/Creatinine Ratio 9 (6-20) Glucose Level 102 mg/dL (70-99) Glucose (Fingerstick) 107 mg/dL (70-99) Lactic Acid Level 2.2 mmol/L (0.4-2.0) Calcium Level 9.2 mg/dL (8.5-10.1) Magnesium Level 2.2 mg/dL (1.8-2.4) Total Bilirubin 0.5 mg/dL (0.2-1.0) Aspartate Amino Transf (AST/SGOT) 20 U/L (15-37) Alanine Aminotransferase (ALT/SGPT) 26 U/L (16-63) Alkaline Phosphatase 71 U/L (46-116) Creatine Kinase 255 U/L (39-308) Creatine Kinase MB (Mass) 2.1 ng/mL (0.0-3.6) Creatine Kinase MB Relative Index 0.8 % (0-4) Troponin I Quantitative < 0.017 ng/mL (0.000-0.055) BM-Alm-T-Type Natriuretic Peptide 55 pg/mL (0-124) Total Protein 8.1 g/dL (6.4-8.2) Albumin 3.7 g/dL (3.4-5.0) Albumin/Globulin Ratio 0.8 (1.0-1.7) Lipase 94 U/L (73-393) Ethyl Alcohol Level < 10 mg/dL (0-10) Influenza Type A Antigen Negative (NEGATIVE) Influenza Type B Antigen Negative (NEGATIVE) O2 Saturation 97 % (92-99) Arterial Blood pH 7.49 (7.35-7.45) Arterial Blood pCO2 at Patient Temp 29 mmHg (35-46) Arterial Blood pO2 at Patient Temp 101 mmHg (75-108) Arterial Blood HCO3 22 mmol/L (21-28) Arterial Blood Base Excess 0 mmol/L (-3-3) FiO2 32 Urine Collection Type Clean catch Urine Color Yellow Urine Clarity Clear Urine pH 8.0 Urine Specific [place] 1.020 Urine Protein Negative mg/dL (NEG-TRACE) Urine Glucose (UA) Negative mg/dL (NEG) Urine Ketones (Stick) Negative mg/dL (NEG) Urine Blood Negative (NEG) Urine Nitrite Negative (NEG) Urine Bilirubin Negative (NEG) Urine Urobilinogen Dipstick 1.0 mg/dL (0.2 mg/dL) Urine Leukocyte Esterase Negative (NEG) Urine RBC Occ /HPF (0-2) Urine WBC 0 /HPF (0-4) Urine Squamous Epithelial Cells Occ /LPF Urine Bacteria 0 /HPF (0-FEW) Urine Mucus Slight /LPF Urine Opiates Screen Neg (NEG) Urine Methadone Screen Neg (NEG) Urine Barbiturates Neg (NEG) Urine Phencyclidine Screen Neg (NEG) Urine Amphetamine/Methamphetamine Neg (NEG) Urine Benzodiazepines Screen Neg (NEG) Urine Cocaine Screen Pos (NEG) Urine Cannabinoids Screen Neg (NEG) Urine Ethyl Alcohol Neg (NEG) Test 12/25/18 20:00 12/25/18 23:00 12/26/18 04:00 Troponin I Quantitative 0.022 ng/mL (0.000-0.055) 0.026 ng/mL (0.000-0.055) White Blood Count 5.2 x10^3/uL (4.0-11.0) Red Blood Count 4.46 x10^6/uL (4.30-5.70) Hemoglobin 12.4 g/dL (13.0-17.5) Hematocrit 37.8 % (39.0-53.0) Mean Corpuscular Volume 85 fL (79-100) Mean Corpuscular Hemoglobin 28 pg (25-35) Mean Corpuscular Hemoglobin Concent 33 g/dL (31-37) Red Cell Distribution Width 14.5 % (11.5-14.5) Platelet Count 162 x10^3/uL (140-400) Neutrophils (%) (Auto) 75 % (31-73) Lymphocytes (%) (Auto) 12 % (24-48) Monocytes (%) (Auto) 12 % (0-9) Eosinophils (%) (Auto) 0 % (0-3) Basophils (%) (Auto) 1 % (0-3) Neutrophils # (Auto) 3.9 x10^3uL (1.8-7.7) Lymphocytes # (Auto) 0.6 x10^3/uL (1.0-4.8) Monocytes # (Auto) 0.6 x10^3/uL (0.0-1.1) Eosinophils # (Auto) 0.0 x10^3/uL (0.0-0.7) Basophils # (Auto) 0.1 x10^3/uL (0.0-0.2) Medications Active Scripts Medications Dose Route/Sig Max Daily Dose Days Date Category Impression . IMPRESSION: 1. Acute hypoxic respiratory failure, likely related to viral pneumonitis. His chest x-ray shows mild interstitial pattern, suggesting likely a viral infection. He also had a fever of 102.9 on admission. 2. Syncopal episode, likely related to cocaine abuse. D-dimer is normal and as such does not need any workup for thromboembolic disease. 3. Substance abuse with cocaine. 4. Normal troponin level. 5. Mild renal insufficiency with acute kidney injury. Plan . RECOMMENDATIONS: 1. The patient was given substance abuse counseling. 2. Monitor fever pattern. Influenza screen is negative. 3. Follow all cultures. 4. Continue empiric antibiotics. 5. echocardiogram. 6. No need for any thromboembolic workup. 7. Continue bronchodilators. 8. Discussed with ELIDA Landers MD Dec 27, 2018 09:17
[2018-12-27] MEDS ORDERED: AZITHROMYCIN 250 MG TABLET. PO ONE (09:30)
[2018-12-27] MEDS: IV NORMAL SALINE 1000ML BAG 1,000 ML IV SCH ×2 (10:18→21:26)
[2018-12-27] MEDS: guaiFENesin DM 200MG/20MG 10 ML SYRUP PO PRN ×2 (10:19→21:27)
[2018-12-27] MEDS: LACTOBACILLUS RHAMNOSUS GG 1 CAPSULE. PO SCH ×2 (10:19→21:27)
[2018-12-27] MEDS: BENZONATATE 100 MG CAPSULE. PO PRN ×2 (10:20→21:27)
[2018-12-27 10:40] LABS: CALCIUM 8.2 mg/dL (8.5-10.1); CREATININE 1.6 mg/dL (0.7-1.3); GFR 54.8; POTASSIUM 3.4 mmol/L (3.5-5.1)
[2018-12-27 11:00] VITALS: BP 119/64
[2018-12-27 15:00] VITALS: BP 123/82
[2018-12-27 19:00] VITALS: BP 138/75
[2018-12-27] MEDS: IBUPROFEN 200 MG TABLET. PO PRN (21:27)
[2018-12-27] MEDS: CYCLOBENZAPRINE 10 MG TABLET. PO PRN (21:27)
[2018-12-27] MEDS: ACETAMINOPHEN 500 MG TABLET PO PRN (22:42)
[2018-12-27 23:00] VITALS: BP 139/69
[2018-12-28 03:00] VITALS: BP 129/72
[2018-12-28] MEDS: IV NORMAL SALINE 1000ML BAG 1,000 ML IV SCH (05:51)
[2018-12-28] MEDS: cefTRIAXone IV Push 1 GM VIAL. IVP SCH (05:51)
--- NOTE | 2018-12-28 06:00 | NUR ---
SUSY pt with some chest discomfort noted during the noc however after placing pt on oxygen, checking vitals and giving pain medication, pt pain subsided. No further complaints noted. Pt remains SR with first degree noted on monitor. Pt hgb increased after blood given. Addendum: 12/29/18 at 0731 by CARISSA DASILVA RN wrong entry, wrong pt
[2018-12-28] MEDS: IPRATRPIUM/ALBUTEROL 0.5/2.5MG 3 ML NEBU. NEB SCH (06:12)
[2018-12-28 07:00] VITALS: BP 99/55
[2018-12-28] MEDS ORDERED: CYCL10TA2 PO (08:50)
[2018-12-28] MEDS ORDERED: CEPH-264 PO (08:50)
[2018-12-28] MEDS ORDERED: IBUP-1227 PO (08:50)
[2018-12-28] MEDS ORDERED: BENZ-8 PO (08:50)
[2018-12-28] MEDS ORDERED: AZITHROMYCIN 250 MG TABLET. PO ONE (09:00)
--- NOTE | 2018-12-28 09:17 | PDOC ---
PULMONARY PROGRESS NOTES Subjective has sob, has cough, small amount of thick sputum. Vitals Vital Signs Date Time Temp Pulse Resp B/P (MAP) Pulse Ox O2 Delivery O2 Flow Rate FiO2 12/28/18 07:00 98.1 72 22 99/55 (70) 94 Room Air 98.1 12/27/18 23:00 2.0 ROS: No Nausea General: Alert HEENT: Other (nc at perrl) Lungs: Crackles Cardiovascular: S1, S2 Abdomen: Soft, Non-tender Neuro Exam: Alert Extremities: No Edema Skin: Warm Labs Laboratory Tests Test 12/27/18 09:24 Sodium Level 140 mmol/L (136-145) Potassium Level 3.4 mmol/L (3.5-5.1) Chloride Level 106 mmol/L (98-107) Carbon Dioxide Level 23 mmol/L (21-32) Anion Gap 11 (6-14) Blood Urea Nitrogen 13 mg/dL (8-26) Creatinine 1.6 mg/dL (0.7-1.3) Estimated GFR (Cockcroft-Gault) 54.8 Glucose Level 160 mg/dL (70-99) Calcium Level 8.2 mg/dL (8.5-10.1) Laboratory Tests Test 12/27/18 09:24 Sodium Level 140 mmol/L (136-145) Potassium Level 3.4 mmol/L (3.5-5.1) Chloride Level 106 mmol/L (98-107) Carbon Dioxide Level 23 mmol/L (21-32) Anion Gap 11 (6-14) Blood Urea Nitrogen 13 mg/dL (8-26) Creatinine 1.6 mg/dL (0.7-1.3) Estimated GFR (Cockcroft-Gault) 54.8 Glucose Level 160 mg/dL (70-99) Calcium Level 8.2 mg/dL (8.5-10.1) Medications Active Scripts Medications Dose Route/Sig Max Daily Dose Days Date Category Comments echo reviewed, The left ventricle is hyperdynamic. The Ejection Fraction is >70%. There is normal LV segmental wall motion. Doppler and Color Flow revealed mild aortic regurgitation. Impression . IMPRESSION: 1. Acute hypoxic respiratory failure, likely related to viral pneumonitis. vs others 2. Syncopal episode, likely related to cocaine abuse. D-dimer is normal and as such does not need any workup for thromboembolic disease. 3. Substance abuse with cocaine. 4. Normal troponin level. 5. Mild renal insufficiency with acute kidney injury. 6. fever Plan . RECOMMENDATIONS: 1. The patient was given substance abuse counseling. 2. Influenza screen is negative, still febrile, i do recommend id consult. 3. Follow all cultures, neg so far 4. Continue empiric antibiotics. 5. echocardiogram reviewed. mild AI 6. No need for any thromboembolic workup. 7. Continue bronchodilators. 8. Discussed with pt ELIDA ONTIVEROS MD Dec 28, 2018 09:17
[2018-12-28] MEDS: BENZONATATE 100 MG CAPSULE. PO PRN (09:31)
[2018-12-28 11:16] VITALS: BP 118/52
--- NOTE | 2018-12-28 14:23 | PDOC ---
PROGRESS NOTES Subjective Subjective Patient feeling better but continues to have fevers. with temp of > 102 last evening. Objective Objective Vital Signs Date Time Temp Pulse Resp B/P (MAP) Pulse Ox O2 Delivery O2 Flow Rate FiO2 12/28/18 11:16 98.0 80 20 118/52 (74) 97 Room Air 98.0 12/27/18 23:00 2.0 Intake and Output 12/28/18 07:00 Intake Total 1000 ml Output Total 2050 ml Balance -1050 ml Intake Oral 1000 ml Output Urine Total 2050 ml # Voids 1 Physical Exam Abdomen: Normal bowel sounds Heart: Regular rate Extremities: No edema General: Alert Lungs: Clear to auscultation Assessment Assessment Problems Medical Problems: (1) Altered mental status Status: Acute (2) Cocaine abuse Status: Acute (3) Dyspnea Status: Acute (4) Syncope Status: Acute FUO Syncope vasovagal Fever viral syndrome vs withdrawal Bronchitis suspect viral Substance abuse with withdrawal Acute on chronic renal failure. Elevated troponin. Lactic acidosis-resolved Plan Plan of Care Continue IV antibx Consult ID Comment Review of Relevant I have reviewed the following items bebeto (where applicable) has been applied. Labs Laboratory Tests Test 12/27/18 09:24 Sodium Level 140 mmol/L (136-145) Potassium Level 3.4 mmol/L (3.5-5.1) Chloride Level 106 mmol/L (98-107) Carbon Dioxide Level 23 mmol/L (21-32) Anion Gap 11 (6-14) Blood Urea Nitrogen 13 mg/dL (8-26) Creatinine 1.6 mg/dL (0.7-1.3) Estimated GFR (Cockcroft-Gault) 54.8 Glucose Level 160 mg/dL (70-99) Calcium Level 8.2 mg/dL (8.5-10.1) Microbiology 12/26/18 Blood Culture - Preliminary, Resulted NO GROWTH AFTER 2 DAYS Medications Current Medications Sodium Chloride 1,000 ml @ 1,000 mls/hr 1X ONCE IV Last administered on at 16:52; Start 12/25/18 at 14:30; Stop 12/25/18 at 15:29; Status DC Sodium Chloride 1,000 ml @ 1,000 mls/hr Q1H IV Last administered on 12/25/18at 15:35; Start 12/25/18 at 14:24; Stop 12/25/18 at 15:23; Status DC Lorazepam (Ativan) 1 mg 1X ONCE IV Last administered on 12/25/18at 15:40; Start 12/25/18 at 15:30; Stop 12/25/18 at 15:33; Status DC Influenza Virus Vaccine (Afluria Trivalent 1828-1494 Syringe) 0.5 ml ONCE ONCE VAX IM Last administered on 12/26/18at 15:00; Start 12/26/18 at 15:00; Stop at 15:01; Status DC Foristell Carbonate (Lithobid) 25 mg PRN Q4HRS PO ; Start 12/25/18 at 18:15; Status UNV Cyclobenzaprine HCl (Flexeril) 10 mg TID PRN PRN PO MUSCLE SPASMS Last administered on 12/27/18at 21:27; Start 12/25/18 at 18:15 Ibuprofen (Motrin) 600 mg PRN Q6HRS PRN PO INFLAMMATION Last administered on at 21:27; Start 12/25/18 at 18:15 Albuterol/ Ipratropium (Duoneb) 3 ml RTQID NEB Last administered on 12/28/18at 06:12; Start 12/25/18 at 20:00; Stop 12/28/18 at 08:48; Status DC Chlordiazepoxide (Librium) 25 mg PRN Q4HRS PRN PO ALCOHOL WITHDRAWAL Last administered on 12/26/18at 21:13; Start 12/25/18 at 18:45 Ceftriaxone Sodium (Rocephin) 1 gm Q24H IVP Last administered on 12/28/18at 05: 51; Start 12/26/18 at 04:00; Stop 12/28/18 at 08:48; Status DC Sodium Chloride 1,000 ml @ 1,000 mls/hr Q1H IV Last administered on 12/26/18at 03:53; Start 12/26/18 at 04:00; Stop 12/26/18 at 04:20; Status DC Lactobacillus Rhamnosus (Culturelle) 1 cap BID PO Last administered on at 21:27; Start 12/26/18 at 09:00; Stop 12/28/18 at 08:48; Status DC Furosemide (Lasix) 20 mg 1X ONCE IVP Last administered on 12/26/18 05:12; Start 12/26/18 at 05:30; Stop 12/26/18 at 05:32; Status DC Sodium Chloride 1,000 ml @ 100 mls/hr Q10H IV Last administered on 12/26/18 05:12; Start 12/26/18 at 05:30; Stop 12/26/18 at 09:20; Status DC Azithromycin (Zithromax) 500 mg 1X ONCE PO Last administered on 12/26/18at 09: 14; Start 12/26/18 at 09:15; Stop 12/26/18 at 09:16; Status DC Benzonatate (Tessalon Perle) 100 mg PRN Q6HRS PO ; Start 12/26/18 at 09:30; Stop 12/26/18 at 10:43; Status DC Benzonatate (Tessalon Perle) 100 mg PRN Q6HRS PRN PO COUGH 2ND CHOICE Last administered on 12/28/18 09:31; Start 12/26/18 at 10:45 Acetaminophen (Tylenol) 1,000 mg PRN Q6HRS PRN PO fever Last administered on at 22:42; Start 12/26/18 at 21:00 Guaifenesin (Robitussin Dm) 10 ml PRN Q6HRS PRN PO COUGH 1ST CHOICE Last administered on 12/27/18 21:27; Start 12/26/18 at 21:00; Stop 12/28/18 at 08:48 ; Status DC Sodium Chloride 500 ml @ 500 mls/hr 1X ONCE IV Last administered on 21:16; Start 12/26/18 at 21:30; Stop 12/26/18 at 22:29; Status DC Sodium Chloride 1,000 ml @ 100 mls/hr Q10H IV Last administered on 12/28/18 05:51; Start 12/26/18 at 22:00; Stop 12/28/18 at 08:48; Status DC Azithromycin (Zithromax) 500 mg 1X ONCE PO Last administered on 12/27/18at 10: 19; Start 12/27/18 at 09:30; Stop 12/27/18 at 09:31; Status DC Azithromycin (Zithromax) 500 mg 1X ONCE PO Last administered on 3/17/19at 09: 31; Start 12/28/18 at 09:00; Stop 12/28/18 at 09:01; Status DC Ceftriaxone Sodium (Rocephin) 1 gm Q24H IVP ; Start 12/29/18 at 05:00 Active Scripts Active Cyclobenzaprine Hcl 10 Mg Tablet 10 Mg PO TID PRN PRN 14 Days Benzonatate 100 Mg Capsule 100 Mg PO PRN Q6HRS PRN 30 Days Ibuprofen 200 Mg Tablet 600 Mg PO PRN Q6HRS PRN 60 Days Keflex (Cephalexin) 500 Mg Capsule 2 Cap PO BID Vitals/I & O Vital Sign - Last 24 Hours 12/27/18 12/27/18 12/27/18 12/27/18 15:00 16:19 19:00 19:54 Temp 99.0 102.6 99.0 102.6 Pulse 92 107 Resp 20 18 B/P (MAP) 123/82 (96) 138/75 (96) Pulse Ox 96 96 96 96 O2 Delivery Room Air Room Air Room Air O2 Flow Rate 2.0 12/27/18 12/27/18 12/28/18 12/28/18 20:00 23:00 03:00 06:12 Temp 102.5 97.9 102.5 97.9 Pulse 95 99 Resp 18 18 B/P (MAP) 139/69 (92) 129/72 (91) Pulse Ox 95 95 O2 Delivery Room Air Room Air Room Air Room Air O2 Flow Rate 2.0 2.0 12/28/18 12/28/18 12/28/18 07:00 08:00 11:16 Temp 98.1 98.0 98.1 98.0 Pulse 72 80 Resp 22 20 B/P (MAP) 99/55 (70) 118/52 (74) Pulse Ox 94 97 O2 Delivery Room Air Room Air Room Air Intake and Output 12/27/18 12/27/18 12/28/18 15:00 23:00 07:00 Intake Total 600 ml 400 ml 0 ml Output Total 725 ml 1025 ml 300 ml Balance -125 ml -625 ml -300 ml KRISTY TOVAR MD Dec 28, 2018 14:23
[2018-12-28 15:42] VITALS: BP 115/71
[2018-12-28] MEDS ORDERED: ALBUTEROL SULFATE 2.5 MG/3 ML NEBU. NEB PRN (15:45)
--- NOTE | 2018-12-28 16:24 | NUR ---
Patient off telemetry now. Vital signs are stable, no observed arrhythmias during the shift. Patient reports he's feeling better. Paged Dr. Bradshaw at [phone], ok to discontinue tele monitor.
[2018-12-28 19:15] VITALS: BP 122/77
[2018-12-28 22:30] VITALS: BP 102/66
[2018-12-29 02:30] VITALS: BP 134/74
[2018-12-29] MEDS ORDERED: cefTRIAXone IV Push 1 GM VIAL. IVP SCH (05:00)
[2018-12-29 07:00] VITALS: BP 135/75
--- NOTE | 2018-12-29 09:20 | EKG ---
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
--- NOTE | 2018-12-29 09:43 | PDOC ---
PULMONARY PROGRESS NOTES Subjective no sob, Vitals Vital Signs Date Time Temp Pulse Resp B/P (MAP) Pulse Ox O2 Delivery O2 Flow Rate FiO2 12/29/18 07:00 98.5 80 18 135/75 (95) 100 Room Air 98.5 12/28/18 20:00 2.0 ROS: No Nausea General: Alert, No acute distress HEENT: Other (nc at perrl) Lungs: Clear Cardiovascular: S1, S2 Abdomen: Soft, Non-tender Neuro Exam: Alert Extremities: No Edema Skin: Warm Medications Active Scripts Medications Dose Route/Sig Max Daily Dose Days Date Category Comments echo reviewed, The left ventricle is hyperdynamic. The Ejection Fraction is >70%. There is normal LV segmental wall motion. Doppler and Color Flow revealed mild aortic regurgitation. Impression . IMPRESSION: 1. Acute hypoxic respiratory failure, likely related to viral pneumonitis 2. Syncopal episode, likely related to cocaine abuse. D-dimer is normal and as such does not need any workup for thromboembolic disease. 3. Substance abuse with cocaine. 4. Normal troponin level. 5. Mild renal insufficiency with acute kidney injury. 6. fever Plan . RECOMMENDATIONS: 1. The patient was given substance abuse counseling. 2. Influenza screen is negative, still febrile, i do recommend id consult. 3. Follow all cultures, neg so far 4. Continue empiric antibiotics. 5. echocardiogram reviewed. mild AI 6. No need for any thromboembolic workup. 7. Continue bronchodilators. 8. Discussed with pt cass with [facility] FAITH ASCENCIO MD Dec 29, 2018 09:43
[2018-12-29 11:00] VITALS: BP 114/73
--- NOTE | 2018-12-29 13:40 | NUR ---
Discharge orders placed. Discharge instructions/medications discussed with pt. Explained new medications will be called into [facility]'s pharmacy. New Rx given to pt for ProAir. Discussed with pt the need to go apple picker medication today so ABT can get started. Pt voiced understanding. IV removed without complications. Walked pt out to hospital exit accompanied by pt friends without complications.
--- NOTE | 2018-12-29 13:45 | NUR ---
Called [facility], spoke with Luis Enrique. Keflex 500mg #28 2 tab BID, Benzonatate 100mg #30 1 PO every 6 hours, Cyclobenzaprine 10mg #30 1 tab TID PRN called in. All Rx with no refills. Luis Enrique read back order.
--- NOTE | 2018-12-29 13:55 | DS ---
DATE OF DISCHARGE: 12/29/2018 ADMITTING DIAGNOSIS: Acute respiratory failure. SECONDARY DIAGNOSES: 1. Acute on chronic renal failure. 2. Substance abuse. 3. Elevated troponin. 4. Diastolic congestive heart failure. 5. Alcohol withdrawal. 6. Lactic acidosis. DISMISSAL DIAGNOSES: 1. Acute respiratory failure. 2. Acute on chronic renal failure. 3. Substance abuse. 4. Elevated troponin. 5. Diastolic congestive heart failure. 6. Alcohol withdrawal. 7. Lactic acidosis. HISTORY OF PRESENT ILLNESS AND HOSPITAL COURSE: This patient is a 53-year-old male who came to the hospital with increasing cough, congestion and episode of syncope. He was evaluated by Cardiology and felt to have a vasovagal syndrome after coughing. Pulmonary Medicine evaluated the patient and started the patient on p.o. and IV antibiotics for community-acquired pneumonia versus aspiration pneumonia versus viral syndrome. He was treated with supportive care, oxygen and breathing treatments. He was also treated and evaluated for withdrawal from alcohol and drugs. The patient improved, but continued to have fevers until 48 hours prior to dismissal. He had no further signs of infection with normal white counts. The patient's vital signs stabilized, and he became afebrile. The patient showed no desire to seek treatment for substance abuse at this time. It was recommended he stop using cocaine and alcohol, plans for discharge were made. DISCHARGE MEDICATIONS: He was discharged on benzonatate Tessalon Perles 100 mg p.o. q.6 p.r.n. cough, Keflex 500 mg 2 tablets b.i.d. The patient completed Zithromax 500 daily for 3 days before discharge. He had cyclobenzaprine 10 mg t.i.d. p.r.n. for back spasms and ibuprofen 600 mg q.6 for back pain. DISCHARGE INSTRUCTIONS: He will follow up in the office in 1 week for continued care. KRISTY TOVAR MD DR: PALAK/lashonda JOB#: [id number] / [id number]
== END 2018-12-29 13:40 | disposition home or self-care (01) | DRG 193 ==
LOC: ER 14:15 → 6 SOUTH 16:15
PROVIDERS: ADMIT Family Medicine; ATTEND Family Medicine
DX: J12.9 Viral pneumonia, unspecified (principal); J96.01 Acute respiratory failure with hypoxia; N17.9 Acute kidney failure, unspecified; I13.0 Hypertensive heart and chronic kidney disease with heart failure and stage 1 through stage 4 chronic kidney disease, or unspecified chronic kidney disease; I50.30 Unspecified diastolic (congestive) heart failure; E87.2 Acidosis; F10.239 Alcohol dependence with withdrawal, unspecified; B34.9 Viral infection, unspecified; M19.90 Unspecified osteoarthritis, unspecified site; F14.10 Cocaine abuse, uncomplicated; G89.29 Other chronic pain; N18.9 Chronic kidney disease, unspecified; J20.9 Acute bronchitis, unspecified; F17.210 Nicotine dependence, cigarettes, uncomplicated; Z82.49 Family history of ischemic heart disease and other diseases of the circulatory system; Z82.5 Family history of asthma and other chronic lower respiratory diseases
CPT/HCPCS: 36415; 36600; 71045; 80048; 80053; 80307; 81001; 82553; 82805; 82962; 83605; 83690; 83735; 83880; 84484; 85025; 85379; 85610; 87040; 87804; 90471; 90756; 93005; 93306; 94640; 94760; 96361; 96374; G0480; J0696; J1940; J2060; J7030; J7040; J7620; Q0144; 99285-25; Q2035

== ENCOUNTER 2019-08-02 13:28 | Emergency (ER) | payer MEDICARE, OTHER ==
[~2019-08-02] VITALS: Ht 180.3 cm; Wt 103.9 kg
[~2019-08-02 13:28] MED LIST changes: +BENZ-8 PO; +CEPH-264 PO; +CYCL10TA2 PO; +IBUP-1670 PO
--- NOTE | 2019-08-02 13:59 | PHYS DOC ---
Past Medical History Past Medical History: Hypertension, Other Additional Past Medical Histor: CHRONIC BACK PAIN (BILL YEAGER APRN) Past Surgical History: No Surgical History (BILL YEAGER APRN) Alcohol Use: Rarely Drug Use: Cocaine (BILL YEAGER APRN) Adult General Chief Complaint Chief Complaint: MECHANICAL FALL HPI HPI Patient is a 54 year old AA male who presents to the emergency department with complaints of low back and tailbone pain after falling down 7-8 steps last night. Patient denies any upper back, neck, or head pain. He denies hitting his head, loss of consciousness, dizziness, nausea, or vomiting. Patient denies any saddle anesthesia or loss of bowel or bladder control. Currently he rates his pain a 9 out of 10 on the pain scale, the pain increases with movement, there are no alleviating factors. (BILL YEAGER APRN) Review of Systems Review of Systems Constitutional: Denies fever or chills [] Eyes: Denies redness, or eye pain [] HENT: Denies nasal congestion or sore throat [] Respiratory: Denies cough or shortness of breath [] Cardiovascular: No additional information not addressed in HPI [] GI: Denies abdominal pain, nausea, vomiting, or diarrhea [] : Denies dysuria or hematuria [] Musculoskeletal: see HPI Integument: Denies rash or skin lesions [] Neurologic: Denies headache, focal weakness or sensory changes [] Complete systems were reviewed and found to be within normal limits, except as documented in this note. (BILL YEAGER APRN) Allergies Allergies Allergies Coded Allergies Type Severity Reaction Last Updated Verified No Known Drug Allergies 01/13/14 No (LANDON KEYES MD) Physical Exam Physical Exam Constitutional: Well developed, well nourished, no acute distress, non-toxic appearance. [] HENT: Normocephalic, atraumatic, bilateral external ears normal, nose normal. [] Eyes: PERRLA, EOMI, conjunctiva normal, no discharge. [] Neck: Normal range of motion, no stridor. [] Cardiovascular:Heart rate regular rhythm Lungs & Thorax: Respirations even and unlabored, no retractions, no respiratory distress Skin: Warm, dry, no erythema, no rash. [] Back: No cervical or thoracic TTP, Lumbar TTP, no CVA tenderness. [] Extremities: No cyanosis, no clubbing, ROM intact, no edema. [] Neurologic: Alert and oriented X 3, no focal deficits noted. [] Psychologic: Affect normal, judgement normal, mood normal. [] (BILL YEAGER APRN) Current Patient Data Vital Signs Vital Signs Date Time Temp Pulse Resp B/P (MAP) Pulse Ox O2 Delivery O2 Flow Rate FiO2 08/02/19 14:00 98.1 91 18 153/78 (103) 98 Room Air 98.1 (LANDON KEYES MD) EKG EKG [] (BILL YEAGER APRN) Radiology/Procedures Radiology/Procedures PROCEDURE: LUMBAR SPINE 2-3V EXAM: AP, lateral and lumbosacral spot views of the lumbar spine DATE: 08/02/2019 2:00 PM INDICATION: low back tailbone pain after fall yesterday COMPARISON: No Prior FINDINGS: 5 nonrib-bearing lumbar type to bodies. Vertebral body heights are preserved. Moderate L4-5 and L5-S1 disc height loss. Mild facet degenerative changes L3-4 and below. No spondylolisthesis. IMPRESSION: 1. No evidence for acute fracture or subluxation 2. Degenerative changes of the spine are seen. EXAM: Sacrum coccyx DATE: 08/02/2019 2:00 PM COMPARISON: No prior INDICATION: Pain s/p fall FINDINGS: Dedicated AP and lateral views of the sacrum/coccyx are negative for acute or subacute fracture. Negative sacro-coccygeal dissociation. Negative SI joint diastasis or degenerative/proliferative changes. Grossly normal bone density. IMPRESSION: No evidence of sacrococcygeal fracture or dissociation. [] (BILL YEAGER APRN) Course & Med Decision Making Course & Med Decision Making Pertinent Labs and Imaging studies reviewed. (See chart for details) [] (BILL YEAGER APRN) Course & Med Decision Making Staff Physician Addendum: I was working in the ER during the course of this patient's visit. I was available for consultation as needed, but I was not directly involved in the care of this patient. (LANDON KEYES MD) Dragon Disclaimer Dragon Disclaimer This electronic medical record was generated, in whole or in part, using a voice recognition dictation system. (BILL YEAGER APRN) Departure Departure Impression: Primary Impression: Low back pain without sciatica Disposition: HOME, SELF-CARE Condition: STABLE Referrals: NO PCP (PCP) Patient Instructions: Back Pain, Adult, [id number] Additional Instructions: Fill the prescription and use as directed. Apply ice to sore areas for 10-15 minutes every hour while awake today and as needed tomorrow. Follow up with your primary care doctor in 1-2 days, Return to the ER if symptoms worsen. Scripts Naproxen (NAPROXEN) 375 Mg Tablet 1 TAB PO BID for pain for 10 Days, #20 TAB 0 Refills with food Prov: BILL YEAGER APRN 08/02/19 Problem Qualifiers Primary Impression: Low back pain without sciatica Chronicity: acute Back pain laterality: midline Qualified Codes: M54.5 - Low back pain BILL YEAGER APRN Aug 02, 2019 13:58 LANDNO KEYES MD Aug 03, 2019 23:08
[2019-08-02 14:00] VITALS: BP 153/78
--- NOTE | 2019-08-02 14:54 | RAD ---
EXAM: AP, lateral and lumbosacral spot views of the lumbar spine DATE: 08/02/2019 2:00 PM INDICATION: low back tailbone pain after fall yesterday COMPARISON: No Prior FINDINGS: 5 nonrib-bearing lumbar type to bodies. Vertebral body heights are preserved. Moderate L4-5 and L5-S1 disc height loss. Mild facet degenerative changes L3-4 and below. No spondylolisthesis. IMPRESSION: 1. No evidence for acute fracture or subluxation 2. Degenerative changes of the spine are seen. EXAM: Sacrum coccyx DATE: 08/02/2019 2:00 PM COMPARISON: No prior INDICATION: Pain s/p fall FINDINGS: Dedicated AP and lateral views of the sacrum/coccyx are negative for acute or subacute fracture. Negative sacro-coccygeal dissociation. Negative SI joint diastasis or degenerative/proliferative changes. Grossly normal bone density. IMPRESSION: No evidence of sacrococcygeal fracture or dissociation. Electronically signed by: Boy Wyatt MD (08/02/2019 2:51 PM) [facility]
[2019-08-02] MEDS ORDERED: NAPR-695 PO (15:16)
== END 2019-08-02 15:26 | disposition home or self-care (01) ==
LOC: ER 13:28
DX: M54.5 Low back pain (principal); M53.3 Sacrococcygeal disorders, not elsewhere classified; I10 Essential (primary) hypertension; G89.29 Other chronic pain
CPT/HCPCS: 72100; 72220; 99284

== ENCOUNTER 2019-11-03 10:40 | Emergency (ER) | payer MEDICARE, OTHER ==
[~2019-11-03] VITALS: Ht 180.3 cm; Wt 100.0 kg
[~2019-11-03 10:40] MED LIST changes: +NAPR-695 PO
--- NOTE | 2019-11-03 11:21 | PHYS DOC ---
Past Medical History Past Medical History: Hypertension, Other Additional Past Medical Histor: CHRONIC BACK PAIN Past Surgical History: No Surgical History Alcohol Use: Rarely Drug Use: Cocaine Adult General Chief Complaint Chief Complaint: FLU SYMPTOM HPI HPI Patient is a 54 year old male who presents with shortness of air, left low back pain, generalized headache, blurred distention that is intermittent, tingling in his bilateral hands that all started this morning. Patient does admit to doing cocaine last night.. He states he supposed to be using inhalers but he does not have any at home. States he is a smoker. Patient is currently homeless and staying time outside. States the cold air is not helping his lungs. Also has a history of bronchitis, headaches, pneumonia, acute respiratory failure, hypertension, chronic back pain. He rates his pain a 8 out of 10. Review of Systems Review of Systems Eyes: Denies change in visual acuity, redness, or eye pain. Intermittent blurry vision. [] Respiratory: Denies cough. + shortness of breath [] Musculoskeletal: Left low back pain or joint pain [] Neurologic: Generalized headache, denies focal weakness or sensory changes [] All other systems were reviewed and found to be within normal limits, except as documented in this note. Current Medications Current Medications Current Medications Medications (Trade) Dose Ordered Sig/Tita Start Time Stop Time Status Last Admin Dose Admin Albuterol/ Ipratropium (Duoneb) 3 ml 1X ONCE 11/03/19 11:15 11/03/19 11:18 DC 11/03/19 11:30 3 ML Fentanyl Citrate (Fentanyl 2ml Vial) 50 mcg 1X ONCE 11/03/19 11:15 11/03/19 11:18 DC 11/03/19 11:56 50 MCG Methylprednisolone Sodium Succinate (SOLU-Medrol 125MG VIAL) 125 mg 1X ONCE 11/03/19 11:15 11/03/19 11:18 DC 11/03/19 11:55 125 MG Allergies Allergies Allergies Coded Allergies Type Severity Reaction Last Updated Verified No Known Drug Allergies 01/13/14 No Physical Exam Physical Exam Constitutional: Well developed, well nourished, no acute distress, non-toxic appearance. [] HENT: Normocephalic, atraumatic, bilateral external ears normal, oropharynx moist, no oral exudates, nose normal. [] Eyes: PERRLA, EOMI, conjunctiva normal, no discharge. [] Neck: Normal range of motion, no tenderness, supple, no stridor. [] Cardiovascular:Heart rate regular rhythm, no murmur [] Lungs & Thorax: Bilateral upper breath sounds coarse and lower lobes clear to auscultation [] Abdomen: Bowel sounds normal, soft, no tenderness, no masses, no pulsatile masses. [] Skin: Warm, dry, no erythema, no rash. [] Back: No tenderness, no CVA tenderness. [] Extremities: No tenderness, no cyanosis, no clubbing, ROM intact, no edema. [] Neurologic: Alert and oriented X 3, normal motor function, normal sensory function, no focal deficits noted. [] Psychologic: Affect normal, judgement normal, mood normal. [] Current Patient Data Vital Signs Vital Signs Date Time Temp Pulse Resp B/P (MAP) Pulse Ox O2 Delivery O2 Flow Rate FiO2 11/03/19 11:56 24 99 Room Air 11/03/19 11:05 97.5 74 135/73 (93) 97.5 Lab Values Laboratory Tests Test 11/03/19 11:20 11/03/19 11:25 Urine Collection Type Unknown Urine Color Yellow Urine Clarity Clear Urine pH 5.5 Urine Specific Crewe >=1.030 Urine Protein Negative mg/dL (NEG-TRACE) Urine Glucose (UA) Negative mg/dL (NEG) Urine Ketones (Stick) Negative mg/dL (NEG) Urine Blood Negative (NEG) Urine Nitrite Negative (NEG) Urine Bilirubin Negative (NEG) Urine Urobilinogen Dipstick 1.0 mg/dL (0.2 mg/dL) Urine Leukocyte Esterase Negative (NEG) Urine RBC 1-2 /HPF (0-2) Urine WBC 1-4 /HPF (0-4) Urine Squamous Epithelial Cells Occ /LPF Urine Bacteria 0 /HPF (0-FEW) Urine Mucus Mod /LPF Urine Opiates Screen Neg (NEG) Urine Methadone Screen Neg (NEG) Urine Barbiturates Neg (NEG) Urine Phencyclidine Screen Neg (NEG) Urine Amphetamine/Methamphetamine Neg (NEG) Urine Benzodiazepines Screen Neg (NEG) Urine Cocaine Screen Pos (NEG) Urine Cannabinoids Screen Neg (NEG) Urine Ethyl Alcohol Neg (NEG) Influenza Type A Antigen Negative (NEGATIVE) Influenza Type B Antigen Negative (NEGATIVE) White Blood Count 5.0 x10^3/uL (4.0-11.0) Red Blood Count 5.00 x10^6/uL (4.30-5.70) Hemoglobin 14.2 g/dL (13.0-17.5) Hematocrit 42.2 % (39.0-53.0) Mean Corpuscular Volume 85 fL (79-100) Mean Corpuscular Hemoglobin 29 pg (25-35) Mean Corpuscular Hemoglobin Concent 34 g/dL (31-37) Red Cell Distribution Width 14.4 % (11.5-14.5) Platelet Count 180 x10^3/uL (140-400) Neutrophils (%) (Auto) 33 % (31-73) Lymphocytes (%) (Auto) 54 % (24-48) H Monocytes (%) (Auto) 9 % (0-9) Eosinophils (%) (Auto) 2 % (0-3) Basophils (%) (Auto) 2 % (0-3) Neutrophils # (Auto) 1.7 x10^3/uL (1.8-7.7) L Lymphocytes # (Auto) 2.7 x10^3/uL (1.0-4.8) Monocytes # (Auto) 0.5 x10^3/uL (0.0-1.1) Eosinophils # (Auto) 0.1 x10^3/uL (0.0-0.7) Basophils # (Auto) 0.1 x10^3/uL (0.0-0.2) Sodium Level 142 mmol/L (136-145) Potassium Level 3.6 mmol/L (3.5-5.1) Chloride Level 107 mmol/L (98-107) Carbon Dioxide Level 23 mmol/L (21-32) Anion Gap 12 (6-14) Blood Urea Nitrogen 10 mg/dL (8-26) Creatinine 1.5 mg/dL (0.7-1.3) H Estimated GFR (Cockcroft-Gault) 58.8 BUN/Creatinine Ratio 7 (6-20) Glucose Level 122 mg/dL (70-99) H Calcium Level 8.9 mg/dL (8.5-10.1) Total Bilirubin 0.3 mg/dL (0.2-1.0) Aspartate Amino Transferase (AST) 17 U/L (15-37) Alanine Aminotransferase (ALT) 23 U/L (16-63) Alkaline Phosphatase 64 U/L (46-116) Troponin I Quantitative < 0.017 ng/mL (0.000-0.055) HS-Ndm-T-Type Natriuretic Peptide 50 pg/mL (0-124) Total Protein 7.0 g/dL (6.4-8.2) Albumin 3.3 g/dL (3.4-5.0) L Albumin/Globulin Ratio 0.9 (1.0-1.7) L Laboratory Tests 11/03/19 11:25 Laboratory Tests 11/03/19 11:25 EKG EKG Sinus Rhythm and no STEMI[] Interpretation Time: [address] Rodriguez Radiology/Procedures Radiology/Procedures [] Impressions: [address] [address] IMAGING REPORT Signed PATIENT: KAROLINE MÉNDEZ ACCOUNT: [id number] : 1965 LOCATION: ER AGE: 54 SEX: M EXAM STATUS: REG ER ORD. PHYSICIAN: LISA CARBAJAL APRN REASON: soa,pt states some chest pain lt side and trouble breathing. PROCEDURE: CHEST PA & LATERAL Study: CHEST PA LATERAL Indication: Shortness of air. Chest pain. Comparison: 12/26/2018 Findings: Unchanged configuration of the cardiomediastinal silhouette. Atherosclerotic calcification seen at the arch. Slightly plethoric central vasculature is similar to the prior. Increased interstitial markings less conspicuous relative to the comparison. No localized airspace opacity. No pleural effusion or pneumothorax. Impression: Mildly plethoric central vascular structures without findings of overt volume overload/congestive heart failure. Mildly increased lung markings but less pronounced from the 12/26/2018 comparison. No layering effusion, pneumothorax or findings of an organizing pneumonia. Electronically signed by: WOLFGANG GUY MD (11/03/2019 12:11 PM) [facility] DICTATED and SIGNED BY: WOLFGANG GUY MD DATE: 11/03/19 [id number] [place] [address] IMAGING REPORT Signed PATIENT: HEATHER MÉNDEZAlber Bentley ACCOUNT: [id number] : 1965 LOCATION: ER AGE: 54 SEX: M EXAM STATUS: REG ER ORD. PHYSICIAN: LISA CARBAJAL APRN REASON: headache PROCEDURE: CT HEAD WO CONTRAST Examination: CT HEAD WO CONTRAST History: Headache, hypertension Comparison/Correlation: None Findings: Axial images of the head were obtained without contrast. Ventricles are normal size. No intracranial hemorrhage, midline shift, or mass effect. Scattered subtle low attenuation regions involving the white matter diffusely evident which may represent chronic ischemic change of the white matter. Bony structures are unremarkable. Impression: No intracranial hemorrhage. Findings suggestive of chronic ischemic changes in white matter but these are much more evident than on 06/30/2015. Consider further evaluation if clinically warranted. RS Compliance Statement: One or more of the following individualized dose reduction techniques were utilized for this examination: 1. Automated exposure control 2. Adjustment of the mA and/or kV according to patient size 3. Use of iterative reconstruction technique Electronically signed by: Didier Dickens MD (11/03/2019 11:57 AM) [facility] DICTATED and SIGNED BY: DIDIER DICKENS MD DATE: 11/03/19 1157 Course & Med Decision Making Course & Med Decision Making Patient denies chest pain, fever, neck pain, abdominal pain, nausea, vomiting, diarrhea, numbness, weakness, dizziness. Ambulatory with a steady gait. Lungs are coarse in upper lobes air and lower lobes. Alert and oriented. Speaks in full clear sentences. Skin pink warm and dry. Mucous membranes moist. Follows all commands appropriately. PERRLA. Vision loss. Not currently having blurry vision. Abdomen is soft and nontender. Patient states he is eating and drinking appropriately. Afebrile. Vital signs within normal limits. Chest xrays shows Impression: Mildly plethoric central vascular structures without findings of overt volume overload/congestive heart failure. Mildly increased lung markings but less pronounced from the 12/26/2018 comparison. No layering effusion, pneumothorax or findings of an organizing pneumonia. Patient states he is feeling much better and is no longer short of breath. Patient states he is no longer short of breath and no longer has a headache. Patient continues to deny any current chest pain or other symptoms. Lungs are clear to auscultation all lobes. Patient will be prescribed inhalers and a Medrol Dosepak. Patient is educated to stop using cocaine. Patient is asking for narcotic pain medication for his chronic low back pain. The patient that he will not be getting narcotics today as he does have cocaine in his system and he just didn't be other day. Patient states was the other day is not today. Patient is again told that he will not be getting narcotics for his back pain. Dragon Disclaimer Dragon Disclaimer This electronic medical record was generated, in whole or in part, using a voice recognition dictation system. NIHSS Stroke Scale NIH Stroke Scale: NIH Stroke Scale Response (Comments) Value Level of Consciousness: 0 Alert/Responsive 0 LOC Questions: 0 Answers both correctly 0 LOC Commands: 0 Performs both tasks 0 Best Gaze: 0 Normal 0 Visual: 0 No visual loss 0 Facial Palsy: 0 Normal, symmetrical 0 Motor - Left Arm 0 No drift 0 Motor - Right Arm 0 No drift 0 Motor - Left Leg 0 No drift 0 Motor: Right Leg 0 No drift 0 Limb Ataxia: 0 Absent 0 Sensory: 0 No loss 0 Best Language: 0 Normal 0 Dysathria: 0 Normal 0 Extinction and Inattention: 0 Normal 0 Total 0 Departure Departure Impression: Primary Impression: Chronic back pain Additional Impression: Asthma Disposition: 01 HOME, SELF-CARE Condition: STABLE Referrals: NO PCP (PCP) Patient Instructions: Bronchitis, [id number], Chronic Back Pain Additional Instructions: Start the Medrol dose pack tomorrow 11/04/19. Stop using cocaine. Continue taking ibuprofen and Tylenol for her chronic back pain. Tried using a heating pad. Use inhalers and medication prescribed as prescribed. Scripts Methylprednisolone (MEDROL) 4 Mg Tab.ds.pk 1 PKG PO UD, #1 PKG Prov: LISA CARBAJAL CRUSHER TENDER 11/03/19 Albuterol Sulfate (PROAIR HFA INHALER) 8.5 Gm Hfa.aer.ad 1 PUFF INH PRN Q6HRS PRN for SHORTNESS OF BREATH, #1 INHALER 0 Refills Prov: LISA CARBAJAL CRUSHER TENDER 11/03/19 Problem Qualifiers Primary Impression: Chronic back pain Back pain location: low back pain Back pain laterality: left Sciatica presence: without sciatica Qualified Codes: M54.5 - Low back pain; G89.29 - Other chronic pain Additional Impression: Asthma Asthma severity: mild Asthma persistence: intermittent Asthma complication type: uncomplicated Qualified Codes: J45.20 - Mild intermittent asthma, uncomplicated LISA CARBAJAL CRUSHER TENDER Nov 03, 2019 11:21
[2019-11-03 11:30] LABS: BILIRUBIN,URINE NEGATIVE (NEG); CLARITY,URINE CLEAR; COLOR,URINE YELLOW; NITRITE,URINE NEGATIVE (NEG); PH,URINE 5.5; PROTEIN,URINE NEGATIVE (NEG-TRACE)
[2019-11-03] MEDS: IPRATRPIUM/ALBUTEROL 0.5/2.5MG 3 ML NEBU. NEB ONE (11:30)
[2019-11-03 11:34] LABS: BASO # 0.1 x10^3/uL (0.0-0.2); BASO % 2 % (0-3); EOS # 0.1 x10^3/uL (0.0-0.7); EOS % 2 % (0-3); HEMATOCRIT 42.2 % (39.0-53.0); HEMOGLOBIN 14.2 g/dL (13.0-17.5); LYMPH # 2.7 x10^3/uL (1.0-4.8); LYMPH % 54 % (24-48); MEAN CORPUSCULAR HEMOGLOBIN 29 pg (25-35); MEAN CORPUSCULAR HGB CONC 34 g/dL (31-37); MEAN CORPUSCULAR VOLUME 85 fL (79-100); MONO # 0.5 x10^3/uL (0.0-1.1); MONO % 9 % (0-9); NEUT # 1.7 x10^3/uL (1.8-7.7); NEUT % 33 % (31-73); PLATELET COUNT 180 x10^3/uL (140-400); RED CELL DISTRIBUTION WIDTH 14.4 % (11.5-14.5)
[2019-11-03 11:38] LABS: AMPHETAMINE/METHAMPHETAMINE NEG (NEG); BARBITURATES NEG (NEG); BENZODIAZEPINES NEG (NEG); CANNABINOIDS NEG (NEG); COCAINE POS (NEG); METHADONE NEG (NEG); OPIATES NEG (NEG); PHENCYCLIDINE NEG (NEG)
[2019-11-03 11:40] LABS: BACTERIA,URINE 0 /HPF (0-FEW); SQUAMOUS EPITHELIAL CELL,UR OCC /LPF
[2019-11-03 11:42] LABS: CALCIUM 8.9 mg/dL (8.5-10.1); CREATININE 1.5 mg/dL (0.7-1.3); GFR 58.8; POTASSIUM 3.6 mmol/L (3.5-5.1)
[2019-11-03 11:47] LABS: INFLUENZA A PATIENT NEGATIVE (NEGATIVE); INFLUENZA B PATIENT NEGATIVE (NEGATIVE)
[2019-11-03 11:48] LABS: ALBUMIN 3.3 g/dL (3.4-5.0); ALBUMIN/GLOBULIN RATIO 0.9 (1.0-1.7); TOTAL BILIRUBIN 0.3 mg/dL (0.2-1.0)
[2019-11-03] MEDS: methylPREDNISolone SOD SUCC PF 125 MG/2 ML VIAL. IV ONE (11:55)
[2019-11-03] MEDS: fentaNYL PF VIAL 100 MCG/2 ML VIAL IVP ONE (11:56)
--- NOTE | 2019-11-03 11:56 | EKG ---
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
--- NOTE | 2019-11-03 12:01 | RAD ---
Examination: CT HEAD WO CONTRAST History: Headache, hypertension Comparison/Correlation: None Findings: Axial images of the head were obtained without contrast. Ventricles are normal size. No intracranial hemorrhage, midline shift, or mass effect. Scattered subtle low attenuation regions involving the white matter diffusely evident which may represent chronic ischemic change of the white matter. Bony structures are unremarkable. Impression: No intracranial hemorrhage. Findings suggestive of chronic ischemic changes in white matter but these are much more evident than on 06/30/2015. Consider further evaluation if clinically warranted. PQRS Compliance Statement: One or more of the following individualized dose reduction techniques were utilized for this examination: 1. Automated exposure control 2. Adjustment of the mA and/or kV according to patient size 3. Use of iterative reconstruction technique Electronically signed by: Didier Gayle MD (11/03/2019 11:57 AM) [facility]
--- NOTE | 2019-11-03 12:13 | RAD ---
Study: CHEST PA LATERAL Indication: Shortness of air. Chest pain. Comparison: 12/26/2018 Findings: Unchanged configuration of the cardiomediastinal silhouette. Atherosclerotic calcification seen at the arch. Slightly plethoric central vasculature is similar to the prior. Increased interstitial markings less conspicuous relative to the comparison. No localized airspace opacity. No pleural effusion or pneumothorax. Impression: Mildly plethoric central vascular structures without findings of overt volume overload/congestive heart failure. Mildly increased lung markings but less pronounced from the 12/26/2018 comparison. No layering effusion, pneumothorax or findings of an organizing pneumonia. Electronically signed by: WOLFGANG GUY MD (11/03/2019 12:11 PM) [facility]
[2019-11-03] MEDS ORDERED: METH4TAB2 PO (12:31)
[2019-11-03] MEDS ORDERED: ALBU2.5V8 INH (12:31)
[2019-11-03 12:36] VITALS: BP 143/74
== END 2019-11-03 12:56 | disposition home or self-care (01) ==
LOC: ER 10:40
DX: J45.909 Unspecified asthma, uncomplicated (principal); G89.29 Other chronic pain; M54.5 Low back pain; R51 Headache; I10 Essential (primary) hypertension; F17.200 Nicotine dependence, unspecified, uncomplicated
CPT/HCPCS: 36415; 70450; 71046; 80053; 80307; 81001; 83880; 84484; 85025; 87804; 93005; 94640; 96374; 96375; 99285; J2930; J3010; J7620

== ENCOUNTER 2021-08-03 15:43 | Emergency (ER) | payer MEDICARE, OTHER ==
[~2021-08-03] VITALS: Ht 180.3 cm; Wt 109.1 kg
[~2021-08-03 15:43] MED LIST changes: +ALBU2.5V8 INH; +METH4TAB2 PO
[2021-08-03 16:55] VITALS: BP 140/77
[2021-08-03] MEDS ORDERED: DICL50TA4 PO (17:11)
[2021-08-03] MEDS ORDERED: CYCL5TAB PO (17:11)
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
[2021-08-03] MEDS ORDERED: KETOROLAC 60 MG/2 ML VIAL. IM ONE (17:15)
[2021-08-03] MEDS ORDERED: HYDROcodone/APAP 5/325MG 1 TAB TABLET PO ONE (17:15)
== END 2021-08-03 17:35 | disposition home or self-care (01) ==
LOC: ER 15:43
DX: M54.41 Lumbago with sciatica, right side (principal); G89.29 Other chronic pain; I10 Essential (primary) hypertension
CPT/HCPCS: 99283